=== PATIENT | female | born 1930 | race Asian ===

== ENCOUNTER 2019-10-23 18:33 | Inpatient (IN) | payer BC, OTHER ==
[~2019-10-23] VITALS: Ht 149.9 cm; Wt 49.0 kg
[~2019-10-23 18:33] MED LIST: ACETAMINOPHEN-1 EAC1 ORAL; ALLOPURINOL100 M1 ORAL; ANTIVERT25 MG ORAL; ATORVASTATIN CA20 MG PO; CEPHALEXIN500 MG PO; ECOTRIN81 MG ORAL; GLUCOPHAGE500 MG PO; IMODIUM2 MG ORAL; NEURONTIN400 MG ORAL; NORVASC5 MG PO; RANITIDINE HCL150 MG ORAL; SYSTANE 0.3-0.1 EAC1 OP; ZESTRIL10 MG ORAL; ZESTRIL20 MG PO; ZOFRAN ODT4 MG ORAL; [UNRECOGNIZED DRUG - REMARK]
[2019-10-23 18:47] VITALS: BP 141/45
--- NOTE | 2019-10-23 18:51 | Emergency Room Report ---
History of Present Illness General Chief Complaint: Generalized Weakness Source: Patient Present Illness HPI Patient is an 88-year-old female who presents to the ER complaining of generalized weakness. Patient states that she passed out earlier today. She states that since starting triage she started having some left-sided substernal chest pain. Patient states that she does not have a headache and does not know if she hit her head. She also complains of shortness of breath that started this morning. She denies any fever or chills. She states that she is so weak that she cannot get around easily and complains of decreased p.o. intake. Patient denies any rash. She denies any abdominal pain nausea or vomiting. Patient was brought in by EMS. Allergies: Coded Allergies: No Known Allergies (Verified , 01/12/11) COVID-19 Screening Contact w/high risk pt: No Recent Travel to affected area: No Experienced COVID-19 symptoms?: No COVID-19 Testing performed [employer]: No Patient History Last Menstrual Period: na Reviewed Nursing Documentation: PMH: Agreed; PSxH: Agreed Nursing Documentation-PMH Past Medical History: No History, Except For Hx Hypertension: Yes Hx Pacemaker: No Hx Asthma: No Hx COPD: No Hx Diabetes: Yes Hx Cancer: No Hx Gastrointestinal Problems: Yes Hx Dialysis: No Hx Neurological Problems: No Hx Cerebrovascular Accident: No Hx Seizures: No Review of Systems All Other Systems: negative except mentioned in HPI Physical Exam Vital Signs Date Time Temp Pulse Resp B/P (MAP) Pulse Ox O2 Delivery O2 Flow Rate FiO2 10/23/19 18:29 97.5 85 22 141/45 (77) 99 Room Air Sp02 EP Interpretation: reviewed, normal General Appearance: no apparent distress, alert, GCS 15, non-toxic Head: normocephalic, atraumatic Eyes: bilateral eye normal inspection, bilateral eye PERRL ENT: hearing grossly normal, normal pharynx, no angioedema, normal voice Neck: full range of motion, supple/symm/no masses Respiratory: chest non-tender, lungs clear, normal breath sounds, speaking full sentences Cardiovascular #1: regular rate, rhythm, no edema Gastrointestinal: normal bowel sounds, non tender, soft, non-distended, no guarding, no rebound Rectal: deferred Genitourinary: no CVA tenderness Musculoskeletal: back normal, normal range of motion, non-tender Neurologic: alert, motor strength/tone normal, oriented x3, sensory intact, responsive, speech normal Psychiatric: no suicidal/homicidal ideation Skin: no rash Lymphatic: no adenopathy Procedures Critical Care Time Critical Care Time Total critical care time: Approximately 35 minutes. Due to a high probability of clinically significant, life threatening deterioration, the patient required my highest level of preparedness to intervene emergently and I personally spent this critical care time directly and personally managing the patient. This critical care time included obtaining a history; examining the patient; pulse oximetry; ordering and review of studies; arranging urgent treatment with development of a management plan; evaluation of patient's response to treatment ; frequent reassessment; and, discussions with other providers.This critical care time was performed to assess and manage the high probability of imminent, life-threatening deterioration that could result in multi-organ failure. It was exclusive of separately billable procedures and treating other patients and teaching time. Please see MDM section and the rest of the note for further information on patient assessment and treatment. Medical Decision Making Diagnostic Impression: Primary Impression: chest pain Additional Impressions: Syncope Weakness ER Course Patient presents severely anemic from upper GI bleed. Patient started on Protonix. Patient given 80 mg IV push and 8 mg/h as a drip. 2 units of packed red blood cells have been ordered. Patient initially had complained of chest pain. She was given 162 of aspirin. Patient's lactic acid is 5.6. She has been pancultured. Patient started on cefepime. Chest x-ray demonstrates no acute cardiopulmonary pathology. Patient to be admitted for further treatment and evaluation. EKG Diagnostic Results EKG Time: 18:44 EP Interpretation: MD Richa Rate: normal Rhythm: NSR ST Segments: no acute changes ASA given to the pt in ED: Yes Rhythm Strip Diag. Results Rhythm Strip Time: 19:21 EP Interpretation: yes Rate: 73 Rhythm: NSR, no PVC's, no ectopy Chest X-Ray Diagnostic Results Chest X-Ray Diagnostic Results : Chest X-Ray Ordered: Yes # of Views/Limited/Complete: 1 View Indication: Chest Pain EP Interpretation: Yes Interpretation: no consolidation, no effusion, no pneumothorax, no acute cardiopulmonary disease Impression: No acute disease Electronically Signed by: Richa Amado MD Last Vital Signs Date Time Temp Pulse Resp B/P (MAP) Pulse Ox O2 Delivery O2 Flow Rate FiO2 10/23/19 18:29 97.5 85 22 141/45 (77) 99 Room Air Disposition: ADMITTED INPATIENT - ERASED Condition: Critical Physician Consult: Sherrill Sepsis Event Note Evaluation Current Stage of Sepsis: Severe Sepsis Possible Source: GI Tract/Intra-Abdominal Focused Exam Allergies: Coded Allergies: No Known Allergies (Verified , 01/12/11) Date Exam Occurred: October 23, 2019 Time Exam Occurred: 20:50 Laboratory Studies Laboratory Tests Test 10/23/19 19:12 10/23/19 20:20 White Blood Count 16.3 K/UL (4.8-10.8) H Red Blood Count 1.67 M/UL (4.20-5.40) L Hemoglobin 5.3 G/DL (12.0-16.0) *L Hematocrit 17.8 % (37.0-47.0) L Mean Corpuscular Volume 107 FL (80-99) H Mean Corpuscular Hemoglobin 31.9 PG (27.0-31.0) H Mean Corpuscular Hemoglobin Concent 30.0 G/DL (32.0-36.0) L Red Cell Distribution Width 15.6 % (11.6-14.8) H Platelet Count 183 K/UL (150-450) Mean Platelet Volume 6.5 FL (6.5-10.1) Neutrophils (%) (Auto) % (45.0-75.0) Lymphocytes (%) (Auto) % (20.0-45.0) Monocytes (%) (Auto) % (1.0-10.0) Eosinophils (%) (Auto) % (0.0-3.0) Basophils (%) (Auto) % (0.0-2.0) Differential Total Cells Counted 100 Neutrophils % (Manual) 87 % (45-75) H Lymphocytes % (Manual) 8 % (20-45) L Monocytes % (Manual) 5 % (1-10) Eosinophils % (Manual) 0 % (0-3) Basophils % (Manual) 0 % (0-2) Band Neutrophils 0 % (0-8) Nucleated Red Blood Cells 1 /100 WBC Platelet Estimate Adequate Platelet Morphology Normal Polychromasia 1+ Hypochromasia 3+ Anisocytosis 1+ Macrocytosis 2+ Prothrombin Time 10.4 SEC (9.30-11.50) Prothromb Time International Ratio 0.9 (0.9-1.1) Activated Partial Thromboplast Time 17 SEC (23-33) L D-Dimer 0.61 mg/L FEU (0.00-0.49) H Sodium Level 139 MMOL/L (136-145) Potassium Level 4.4 MMOL/L (3.5-5.1) Chloride Level 104 MMOL/L (98-107) Carbon Dioxide Level 21 MMOL/L (21-32) Anion Gap 14 mmol/L (5-15) Blood Urea Nitrogen 89 mg/dL (7-18) H Creatinine 2.3 MG/DL (0.55-1.30) H Estimat Glomerular Filtration Rate 20.0 mL/min (>60) Glucose Level 312 MG/DL (74-106) H Lactic Acid Level 5.90 mmol/L (0.4-2.0) H Pending Calcium Level 8.3 MG/DL (8.5-10.1) L Phosphorus Level 4.1 MG/DL (2.5-4.9) Magnesium Level 2.2 MG/DL (1.8-2.4) Total Bilirubin 0.1 MG/DL (0.2-1.0) L Aspartate Amino Transf (AST/SGOT) 19 U/L (15-37) Alanine Aminotransferase (ALT/SGPT) 22 U/L (12-78) Alkaline Phosphatase 27 U/L (46-116) L Total Creatine Kinase 42 U/L (26-308) Troponin I 0.027 ng/mL (0.000-0.056) Pro-B-Type Natriuretic Peptide 1200 pg/mL (0-125) H Total Protein 5.5 G/DL (6.4-8.2) L Albumin 2.5 G/DL (3.4-5.0) L Globulin 3.0 g/dL Albumin/Globulin Ratio 0.8 (1.0-2.7) L Vital Signs Last 24 Hour Vital Signs Date Time Temp Pulse Resp B/P (MAP) Pulse Ox O2 Delivery O2 Flow Rate FiO2 10/23/19 18:47 97.5 22 141/45 99 Room Air 10/23/19 18:47 85 22 Room Air 10/23/19 18:29 97.5 85 22 141/45 (77) 99 Room Air Respiratory Exam: Clear Cardiovascular Exam: RRR Capillary Refill: Less Than 2 Seconds Peripheral Pulse: Strong Ingris Chaudhry M.D. October 23, 2019 18:51
[2019-10-23] MEDS ORDERED: Aspirin Baby 81mg ORAL ONE (19:00)
--- NOTE | 2019-10-23 19:04 | Diagnostic Imaging Report ---
EXAM: CT Head Without Intravenous Contrast CLINICAL HISTORY: SYNCOPE TECHNIQUE: Axial computed tomography images of the head/brain without intravenous contrast. CTDI is 53 mGy and DLP is 1019 mGy-cm. One or more of the following dose reduction techniques were used: automated exposure control, adjustment of the mA and/or kV according to patient size, use of iterative reconstruction technique. COMPARISON: No relevant prior studies available. FINDINGS: Brain: Parenchymal volume loss. Nonspecific white matter hypoattenuation likely secondary to chronic microvascular ischemia. Cerebrovascular ASVD. 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 No hemorrhage. Ventricles: Unremarkable. No ventriculomegaly. Bones/joints: Unremarkable. No acute fracture. Soft tissues: Unremarkable. Sinuses: Unremarkable as visualized. No acute sinusitis. Mastoid air cells: Unremarkable as visualized. No mastoid effusion. IMPRESSION: 1. No acute intracranial abnormality. 2. Mild chronic senescent findings above. 3. 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
--- NOTE | 2019-10-23 19:12 | Diagnostic Imaging Report ---
ADDENDUM - Added by Cristian Salinas MD on 10/23/2019 7:12 PM (-07:00) Addendum: -Please note that impression 4 should read "If there is continued concern, recommend CT." -Remainder of the report is unchanged. EXAM: XR Chest, 1 View CLINICAL HISTORY: SOB TECHNIQUE: Frontal view of the chest. COMPARISON: 01/04/14 FINDINGS: Lungs: No acute cardiopulmonary disease. Chronic hyperinflation. Pleural space: Unremarkable. No pneumothorax. Heart: Unremarkable. No cardiomegaly. Mediastinum: Unremarkable. Bones/joints: Degenerative spine findings and osteopenia. Tubes, lines and devices: New left chest electronic device. Other findings: If there is continued concern, recommend repeat. IMPRESSION: 1. No acute cardiopulmonary disease. 2. New left chest electronic device. 3. Chronic hyperinflation. 4. If there is continued concern, recommend repeat.
[2019-10-23 19:33] LABS: HEMATOCRIT 17.8 % (37.0-47.0); MEAN CORPUSCULAR VOLUME 107 FL (80-99); PLATELET COUNT 183 K/UL (150-450); RED BLOOD COUNT 1.67 M/UL (4.20-5.40); RED CELL DISTRIBUTION WIDTH 15.6 % (11.6-14.8); WHITE BLOOD COUNT 16.3 K/UL (4.8-10.8)
[2019-10-23 19:38] LABS: HEMOGLOBIN 5.3 G/DL (12.0-16.0)
[2019-10-23 19:43] LABS: ANION GAP 14 mmol/L (5-15); BLOOD UREA NITROGEN 89 mg/dL (7-18); CALCIUM 8.3 MG/DL (8.5-10.1); CARBON DIOXIDE 21 MMOL/L (21-32); CHLORIDE 104 MMOL/L (98-107); CREATININE 2.3 MG/DL (0.55-1.30); POTASSIUM 4.4 MMOL/L (3.5-5.1); SODIUM 139 MMOL/L (136-145)
[2019-10-23] MEDS ORDERED: Pantoprazole Inj IVP ONE (19:45)
[2019-10-23] MEDS ORDERED: Pantoprazole 80 MG in NS 250 ML IV ONE (19:45)
[2019-10-23 19:46] LABS: INR 0.9 (0.9-1.1)
[2019-10-23 19:55] LABS: ALANINE AMINOTRANSFERASE 22 U/L (12-78); ALBUMIN 2.5 G/DL (3.4-5.0); ALBUMIN/GLOBULIN RATIO 0.8 (1.0-2.7); ALKALINE PHOSPHATASE 27 U/L (46-116); ASPARTATE AMINO TRANSFERASE 19 U/L (15-37); BILIRUBIN,TOTAL 0.1 MG/DL (0.2-1.0); CREATINE KINASE 42 U/L (26-308); PHOSPHORUS 4.1 MG/DL (2.5-4.9)
[2019-10-23] MEDS ORDERED: Cefepime HCl 2 GM in D5W 55 ML IVPB ONE (20:00)
[2019-10-23] MEDS ORDERED: Pantoprazole Inj ONE (20:10)
[2019-10-23 21:05] LABS: APPEARANCE,URINE SLIGHTLY CLOUDY; BILIRUBIN, URINE NEGATIVE (NEGATIVE); COLOR,URINE PALE YELLOW; GLUCOSE, URINE (UA) 1+ (NEGATIVE); KETONES,URINE NEGATIVE (NEGATIVE); LEUKOCYTE ESTERASE ,URINE 2+ (NEGATIVE); NITRITE,URINE NEGATIVE (NEGATIVE); PH,URINE 5 (4.5-8.0); PROTEIN,URINE NEGATIVE (NEGATIVE); UROBILINOGEN,URINE NORMAL MG/DL (0.0-1.0)
[2019-10-23] MEDS ORDERED: fentaNYL 100 mcg/2 mL IV ONE (21:15)
--- NOTE | 2019-10-23 21:58 | Diagnostic Imaging Report ---
EXAM: CT Abdomen and Pelvis Without Intravenous Contrast CLINICAL HISTORY: FALL TECHNIQUE: Axial computed tomography images of the abdomen and pelvis without intravenous contrast. CTDI is 3.4 mGy and DLP is 2:15 mGy-cm. One or more of the following dose reduction techniques were used: automated exposure control, adjustment of the mA and/or kV according to patient size, use of iterative reconstruction technique. COMPARISON: 09/21/13 CT abdomen and pelvis FINDINGS: Lung bases: Unremarkable. No mass. No consolidation. ABDOMEN: Liver: Unremarkable. Gallbladder and bile ducts: Cholelithiasis without findings to suggest acute cholecystitis. No ductal dilation. Pancreas: Unremarkable. No ductal dilation. Spleen: Unremarkable. No splenomegaly. Adrenals: Unremarkable. No mass. Kidneys and ureters: Right renal atrophy. No obstructing stones. No hydronephrosis. Stomach and bowel: Colonic diverticulosis without acute diverticulitis. Areas of possible small bowel wall thickening or nondistention could be incidental, or could represent infectious or inflammatory enteritis in the proper clinical context. Otherwise unremarkable bowel structures. PELVIS: Appendix: No findings to suggest acute appendicitis. Bladder: Unremarkable. No stones. Reproductive: Unremarkable as visualized. ABDOMEN and PELVIS: Intraperitoneal space: Unremarkable. No free air. No significant fluid collection. Bones/joints: Osteopenia and mild degenerative age related spine findings. No acute fracture. No dislocation. Soft tissues: Unremarkable. Vasculature: Atherosclerotic vascular disease. No abdominal aortic aneurysm. Lymph nodes: Unremarkable. No enlarged lymph nodes. IMPRESSION: 1. No acute traumatic injury. 2. Areas of possible small bowel wall thickening or nondistention could be incidental, or could represent infectious or inflammatory enteritis in the proper clinical context. 3. Cholelithiasis without findings to suggest acute cholecystitis. 4. Colonic diverticulosis without acute diverticulitis. 5. Right renal atrophy. EXAM: CT Chest Without Intravenous Contrast CLINICAL HISTORY: FALL TECHNIQUE: Axial computed tomography images of the chest without intravenous contrast. CTDI is 3.4 mGy and DLP is 2:15 mGy-cm. One or more of the following dose reduction techniques were used: automated exposure control, adjustment of the mA and/or kV according to patient size, use of iterative reconstruction technique. Coronal and sagittal reformatted images were created and reviewed. COMPARISON: 09/21/13 CT abdomen and pelvis FINDINGS: Lungs: Unremarkable. No mass. No consolidation. Pleural space: Unremarkable. No pneumothorax. No significant effusion. Heart: Moderate coronary artery calcifications. No significant pericardial effusion. Bones/joints: Unremarkable. No acute fracture. No dislocation. Soft tissues: Unremarkable. Vasculature: Atherosclerotic vascular disease. No thoracic aortic aneurysm. Lymph nodes: Unremarkable. No enlarged lymph nodes. Other findings: Hypoattenuating blood pool to be incidental or could indicate anemia. IMPRESSION: 1. No acute traumatic injury. 2. Hypoattenuating blood pool to be incidental or could indicate anemia. 3. Moderate coronary artery calcifications.
[2019-10-23] MEDS ORDERED: Morphine Sulfate 4mg/ml Inj (IV USE ONLY) IVP PRN (23:15)
[2019-10-23] MEDS ORDERED: Milk of Magnesia 30ml Ud ORAL PRN (23:15)
[2019-10-23] MEDS ORDERED: DiphenhydrAMINE 50mg/ml Inj IVP PRN (23:15)
[2019-10-23] MEDS ORDERED: HYDROcodone/Acetamin 10/325 tab ORAL PRN (23:15)
[2019-10-23] MEDS ORDERED: Meclizine 25mg tab ORAL PRN (23:30)
[2019-10-24] VITALS: BP 139/69
[2019-10-24 04:00] VITALS: BP 138/61
[2019-10-24] MEDS ORDERED: D5 1/2NS 1,000 ML IV SCH (04:00)
[2019-10-24] MEDS: [UNRECOGNIZED DRUG - OTHER] IVPB SCH ×2 (06:14→17:19)
[2019-10-24] MEDS: NS IVPB SCH ×2 (06:14→17:19)
[2019-10-24] MEDS: NovoLOG Insulin Flexpen SUBQ SCH ×4 (06:30→20:42)
[2019-10-24 07:05] LABS: MEAN CORPUSCULAR VOLUME 88 FL (80-99); PLATELET COUNT 131 K/UL (150-450); RED BLOOD COUNT 2.16 M/UL (4.20-5.40); WHITE BLOOD COUNT 13.4 K/UL (4.8-10.8)
[2019-10-24 07:13] LABS: HEMOGLOBIN 6.5 G/DL (12.0-16.0)
[2019-10-24 07:36] LABS: ANION GAP 14 mmol/L (5-15); BLOOD UREA NITROGEN 85 mg/dL (7-18); CALCIUM 7.7 MG/DL (8.5-10.1); CARBON DIOXIDE 19 MMOL/L (21-32); CHLORIDE 112 MMOL/L (98-107); CREATININE 1.8 MG/DL (0.55-1.30); POTASSIUM 4.7 MMOL/L (3.5-5.1); SODIUM 144 MMOL/L (136-145)
[2019-10-24 08:00] VITALS: BP 145/54
[2019-10-24] MEDS: Lisinopril 20mg tab ORAL SCH ×2 (08:15→08:34)
[2019-10-24] MEDS: Docusate 250mg cap ORAL SCH (08:15)
--- NOTE | 2019-10-24 08:33 | General Progress Note ---
Assessment/Plan Problem List: (1) GI bleed ICD Codes: K92.2 - Gastrointestinal hemorrhage, unspecified SNOMED: 57324533 (2) Syncope ICD Codes: R55 - Syncope and collapse SNOMED: 390367216 (3) chest pain (4) Weakness ICD Codes: R53.1 - Weakness SNOMED: 92638858 (5) arthritis (6) HTN (hypertension) ICD Codes: I10 - HTN (hypertension) SNOMED: 55854871 (7) GERD (gastroesophageal reflux disease) ICD Codes: K21.9 - GERD (gastroesophageal reflux disease) SNOMED: 619816634 (8) Diabetes ICD Codes: E11.9 - Diabetes SNOMED: 16085059 Assessment/Plan: blood transfusion ppi stool ob plan EGD and colonoscopy for Saturday Subjective ROS Limited/Unobtainable: Yes Allergies: Coded Allergies: No Known Allergies (Verified , 01/12/11) Objective Last 24 Hour Vital Signs Date Time Temp Pulse Resp B/P (MAP) Pulse Ox O2 Delivery O2 Flow Rate FiO2 10/24/19 08:15 145/54 10/24/19 08:00 98.8 75 20 145/54 (84) 100 10/24/19 04:00 98.1 80 16 138/61 (86) 100 10/24/19 04:00 79 10/24/19 00:00 98.1 89 20 139/69 (92) 97 10/24/19 00:00 84 10/23/19 23:30 Room Air 10/23/19 21:36 97.5 10/23/19 19:40 97.5 22 141/45 99 Room Air 10/23/19 18:47 97.5 22 141/45 99 Room Air 10/23/19 18:47 85 22 Room Air 10/23/19 18:29 97.5 85 22 141/45 (77) 99 Room Air Intake and Output 10/23/19 10/24/19 19:00 07:00 Intake Total 450 ml Output Total 850 ml Balance -400 ml Intake Oral 150 ml Blood Product 300 ml Output Urine Total 850 ml # Voids 3 Laboratory Tests 10/23/19 19:12: White Blood Count 16.3H, Red Blood Count 1.67L, Hemoglobin 5.3*L, Hematocrit 17.8L, Mean Corpuscular Volume 107H, Mean Corpuscular Hemoglobin 31.9H, Mean Corpuscular Hemoglobin Concent 30.0L, Red Cell Distribution Width 15.6H, Platelet Count 183, Mean Platelet Volume 6.5, Neutrophils (%) (Auto) , Lymphocytes (%) (Auto) , Monocytes (%) (Auto) , Eosinophils (%) (Auto) , Basophils (%) (Auto) , Differential Total Cells Counted 100, Neutrophils % ( Manual) 87H, Lymphocytes % (Manual) 8L, Monocytes % (Manual) 5, Eosinophils % ( Manual) 0, Basophils % (Manual) 0, Band Neutrophils 0, Nucleated Red Blood Cells 1, Platelet Estimate Adequate, Platelet Morphology Normal, Polychromasia 1 +, Hypochromasia 3+, Anisocytosis 1+, Macrocytosis 2+, Prothrombin Time 10.4, Prothromb Time International Ratio 0.9, Activated Partial Thromboplast Time 17L , D-Dimer 0.61H, Sodium Level 139, Potassium Level 4.4, Chloride Level 104, Carbon Dioxide Level 21, Anion Gap 14, Blood Urea Nitrogen 89H, Creatinine 2.3H , Estimat Glomerular Filtration Rate 20.0, Glucose Level 312H, Lactic Acid Level 5.90H, Calcium Level 8.3L, Phosphorus Level 4.1, Magnesium Level 2.2, Total Bilirubin 0.1L, Aspartate Amino Transf (AST/SGOT) 19, Alanine Aminotransferase (ALT/SGPT) 22, Alkaline Phosphatase 27L, Total Creatine Kinase 42, Troponin I 0.027, Pro-B-Type Natriuretic Peptide 1200H, Total Protein 5.5L, Albumin 2.5L, Globulin 3.0, Albumin/Globulin Ratio 0.8L 10/23/19 20:20: Lactic Acid Level 3.00H 10/23/19 20:50: Urine Color Pale yellow, Urine Appearance Slightly cloudy, Urine pH 5, Urine Specific [place] 1.010, Urine Protein Negative, Urine Glucose (UA) 1+H, Urine Ketones Negative, Urine Blood 5+H, Urine Nitrite Negative, Urine Bilirubin Negative, Urine Urobilinogen Normal, Urine Leukocyte Esterase 2+H, Urine RBC 2- 4H, Urine WBC 0-2, Urine Squamous Epithelial Cells Few, Urine Amorphous Sediment ModerateH, Urine Bacteria ModerateH 10/24/19 05:10: White Blood Count 13.4H, Red Blood Count 2.16L, Hemoglobin 6.5*L, Hematocrit 19.0L, Mean Corpuscular Volume 88#, Mean Corpuscular Hemoglobin 30.3, Mean Corpuscular Hemoglobin Concent 34.4, Red Cell Distribution Width 17.0H, Platelet Count 131L, Mean Platelet Volume 5.3L, Neutrophils (%) (Auto) , Lymphocytes (%) (Auto) , Monocytes (%) (Auto) , Eosinophils (%) (Auto) , Basophils (%) (Auto) , Neutrophils % (Manual) [Pending], Lymphocytes % (Manual) [Pending], Platelet Estimate [Pending], Platelet Morphology [Pending], Sodium Level 144, Potassium Level 4.7, Chloride Level 112H, Carbon Dioxide Level 19L, Anion Gap 14, Blood Urea Nitrogen 85H, Creatinine 1.8H, Estimat Glomerular Filtration Rate 26.6, Glucose Level 144#H, Calcium Level 7.7L Height (Feet): 4 Height (Inches): 11.00 Weight (Pounds): 108 General Appearance: alert EENT: normal ENT inspection Neck: supple Cardiovascular: normal rate Respiratory/Chest: decreased breath sounds Abdomen: normal bowel sounds, non tender, soft Extremities: non-tender Rios Mccartney MD October 24, 2019 08:33
--- NOTE | 2019-10-24 08:53 | History and Physical ---
Beronica Newman PHYSICAL MEDICINE TEACHER 10/24/19 0853: History of Present Illness General Date patient seen: October 24, 2019 Time patient seen: 07:30 Reason for Hospitalization: Generalized Weakness Present Illness HPI 88 years old female with past medical history of diabetes mellitus, hypertension , presented to emergency department complaining of generalized weakness. Patient apparently passed out earlier that day. Chest pain reported reported as left-sided , substernal. She also complained of shortness of breath from the morning. Patient denied headache or any focal weakness. No known fever or chills. Patient complained of decreased oral intake. She denied any abdominal pain, nausea, vomiting . She denied any hematemesis ,melena, hematochezia. Upon evaluation she was afebrile . She required supplemental oxygen. Laboratory work-up revealed leukocytosis WBC 16.3 ,hemoglobin 5.3, hematocrit 17.8, MCV 107. Platelet count 183. Stable electrolytes. BUN 89, creatinine 2.3 Lactic acid 5.9 . AST 19, ALT 22. Troponin 0.027 , proBNP 1200 . EKG revealed sinus rhythm no acute ischemic changes Albumin 2.5 UA + bacteria, no pyuria Chest x-ray revealed no acute cardiopulmonary pathology. CT of the head revealed no acute intracranial abnormality. Right basal ganglia small old lacunar infarct noted. CT scan of the chest, abdomen, pelvis revealed lung base unremarkable. No mass , no consolidation. No acute traumatic injury. Areas of possible small bowel wall thickening or non-distention could be incidental or could represent infectious or inflammatory enteritis. Cholelithiasis without findings to suggest acute cholecystitis. Colonic diverticulosis without acute diverticulitis Right renal atrophy. Moderate coronary artery calcification. In emergency department patient typed and crossed , received Protonix, 1 L of fluid , empiric antibiotic and admitted for further management. Allergies: Coded Allergies: No Known Allergies (Verified , 01/12/11) COVID-19 Screening Contact w/high risk pt: No Recent Travel to affected area: No Experienced COVID-19 symptoms?: Yes COVID-19 symptoms experienced: Shortness of Breath Medication History Scheduled Allopurinol* (Allopurinol*), 100 MG ORAL BID Aspirin (Ecotrin), 81 MG ORAL DAILY Lisinopril* (Zestril*), 10 MG ORAL DAILY Ranitidine Hcl* (Zantac*), 300 MG ORAL DAILY Scheduled PRN Meclizine Hcl* (Antivert*), 12.5 MG ORAL Q6H PRN for for dizziness Patient History History Provided By: Patient Healthcare decision maker N Resuscitation status Full code Advanced Directive on File Past Medical/Surgical History Past Medical/Surgical History: (1) HLD (hyperlipidemia) (2) Osteoporosis (3) GERD (gastroesophageal reflux disease) (4) HTN (hypertension) (5) Diabetes (6) arthritis Review of Systems Constitutional: Reports: weakness Eye: Reports: no symptoms ENT: Reports: no symptoms Respiratory: Reports: see HPI Cardiovascular: Reports: see HPI, chest pain Gastrointestinal: Reports: no symptoms Genitourinary: Reports: no symptoms Musculoskeletal: Reports: other - arthritis Skin: Reports: no symptoms Psychiatric: Reports: no symptoms Neurological: Reports: no symptoms Endocrine: Reports: other - DM Hematologic/Lymphatic: Reports: see HPI, anemia Physical Exam General Appearance: no apparent distress, alert - awake and responsive elderly female Lines, tubes and drains: peripheral HEENT: normocephalic, atraumatic, anicteric, PERRL Neck: non-tender, supple Respiratory/Chest: chest wall non-tender, lungs clear, no respiratory distress , no accessory muscle use Cardiovascular/Chest: regular rhythm Abdomen: normal bowel sounds, non tender, soft Extremities: no calf tenderness, normal capillary refill Neurologic: no motor/sensory deficits, alert, oriented x 3, responsive Musculoskeletal: atrophy - BLE Last 24 Hour Vital Signs Date Time Temp Pulse Resp B/P (MAP) Pulse Ox O2 Delivery O2 Flow Rate FiO2 10/24/19 08:15 145/54 10/24/19 08:00 98.8 75 20 145/54 (84) 100 10/24/19 04:00 98.1 80 16 138/61 (86) 100 10/24/19 04:00 79 10/24/19 00:00 98.1 89 20 139/69 (92) 97 10/24/19 00:00 84 10/23/19 23:30 Room Air 10/23/19 21:36 97.5 10/23/19 19:40 97.5 22 141/45 99 Room Air 10/23/19 18:47 97.5 22 141/45 99 Room Air 10/23/19 18:47 85 22 Room Air 10/23/19 18:29 97.5 85 22 141/45 (77) 99 Room Air Intake and Output 10/23/19 10/24/19 19:00 07:00 Intake Total 450 ml Output Total 850 ml Balance -400 ml Intake Oral 150 ml Blood Product 300 ml Output Urine Total 850 ml # Voids 3 Laboratory Tests Test 10/23/19 19:12 10/23/19 20:20 10/23/19 20:50 10/24/19 05:10 White Blood Count 16.3 K/UL (4.8-10.8) H 13.4 K/UL (4.8-10.8) H Red Blood Count 1.67 M/UL (4.20-5.40) L 2.16 M/UL (4.20-5.40) L Hemoglobin 5.3 G/DL (12.0-16.0) *L 6.5 G/DL (12.0-16.0) *L Hematocrit 17.8 % (37.0-47.0) L 19.0 % (37.0-47.0) L Mean Corpuscular Volume 107 FL (80-99) H 88 FL (80-99) # Mean Corpuscular Hemoglobin 31.9 PG (27.0-31.0) H 30.3 PG (27.0-31.0) Mean Corpuscular Hemoglobin Concent 30.0 G/DL (32.0-36.0) L 34.4 G/DL (32.0-36.0) Red Cell Distribution Width 15.6 % (11.6-14.8) H 17.0 % (11.6-14.8) H Platelet Count 183 K/UL (150-450) 131 K/UL (150-450) L Mean Platelet Volume 6.5 FL (6.5-10.1) 5.3 FL (6.5-10.1) L Neutrophils (%) (Auto) % (45.0-75.0) % (45.0-75.0) Lymphocytes (%) (Auto) % (20.0-45.0) % (20.0-45.0) Monocytes (%) (Auto) % (1.0-10.0) % (1.0-10.0) Eosinophils (%) (Auto) % (0.0-3.0) % (0.0-3.0) Basophils (%) (Auto) % (0.0-2.0) % (0.0-2.0) Differential Total Cells Counted 100 Neutrophils % (Manual) 87 % (45-75) H Pending Lymphocytes % (Manual) 8 % (20-45) L Pending Monocytes % (Manual) 5 % (1-10) Eosinophils % (Manual) 0 % (0-3) Basophils % (Manual) 0 % (0-2) Band Neutrophils 0 % (0-8) Nucleated Red Blood Cells 1 /100 WBC Platelet Estimate Adequate Pending Platelet Morphology Normal Pending Polychromasia 1+ Hypochromasia 3+ Anisocytosis 1+ Macrocytosis 2+ Prothrombin Time 10.4 SEC (9.30-11.50) Prothromb Time International Ratio 0.9 (0.9-1.1) Activated Partial Thromboplast Time 17 SEC (23-33) L D-Dimer 0.61 mg/L FEU (0.00-0.49) H Sodium Level 139 MMOL/L (136-145) 144 MMOL/L (136-145) Potassium Level 4.4 MMOL/L (3.5-5.1) 4.7 MMOL/L (3.5-5.1) Chloride Level 104 MMOL/L (98-107) 112 MMOL/L (98-107) H Carbon Dioxide Level 21 MMOL/L (21-32) 19 MMOL/L (21-32) L Anion Gap 14 mmol/L (5-15) 14 mmol/L (5-15) Blood Urea Nitrogen 89 mg/dL (7-18) H 85 mg/dL (7-18) H Creatinine 2.3 MG/DL (0.55-1.30) H 1.8 MG/DL (0.55-1.30) H Estimat Glomerular Filtration Rate 20.0 mL/min (>60) 26.6 mL/min (>60) Glucose Level 312 MG/DL (74-106) H 144 MG/DL (74-106) #H Lactic Acid Level 5.90 mmol/L (0.4-2.0) H 3.00 mmol/L (0.66-2.22) H Calcium Level 8.3 MG/DL (8.5-10.1) L 7.7 MG/DL (8.5-10.1) L Phosphorus Level 4.1 MG/DL (2.5-4.9) Magnesium Level 2.2 MG/DL (1.8-2.4) Total Bilirubin 0.1 MG/DL (0.2-1.0) L Aspartate Amino Transf (AST/SGOT) 19 U/L (15-37) Alanine Aminotransferase (ALT/SGPT) 22 U/L (12-78) Alkaline Phosphatase 27 U/L (46-116) L Total Creatine Kinase 42 U/L (26-308) Troponin I 0.027 ng/mL (0.000-0.056) Pro-B-Type Natriuretic Peptide 1200 pg/mL (0-125) H Total Protein 5.5 G/DL (6.4-8.2) L Albumin 2.5 G/DL (3.4-5.0) L Globulin 3.0 g/dL Albumin/Globulin Ratio 0.8 (1.0-2.7) L Urine Color Pale yellow Urine Appearance Slightly cloudy Urine pH 5 (4.5-8.0) Urine Specific [place] 1.010 (1.005-1.035) Urine Protein Negative (NEGATIVE) Urine Glucose (UA) 1+ (NEGATIVE) H Urine Ketones Negative (NEGATIVE) Urine Blood 5+ (NEGATIVE) H Urine Nitrite Negative (NEGATIVE) Urine Bilirubin Negative (NEGATIVE) Urine Urobilinogen Normal MG/DL (0.0-1.0) Urine Leukocyte Esterase 2+ (NEGATIVE) H Urine RBC 2-4 /HPF (0 - 2) H Urine WBC 0-2 /HPF (0 - 2) Urine Squamous Epithelial Cells Few /LPF (NONE/OCC) Urine Amorphous Sediment Moderate /LPF (NONE) H Urine Bacteria Moderate /HPF (NONE) H Microbiology Date/Time Source Procedure Growth Status 10/23/19 20:50 Straight Cath Urine Culture - Preliminary NO GROWTH Resulted Height (Feet): 4 Height (Inches): 11.00 Weight (Pounds): 108 Medications Current Medications Medications (Trade) Dose Ordered Sig/Kecia Route PRN Reason Start Time Stop Time Status Last Admin Dose Admin Acetaminophen (Tylenol) 650 mg Q4H PRN ORAL Mild Pain (Pain Scale 1-3) 10/23/19 23:15 11/22/19 23:14 Acetaminophen/ Hydrocodone Bitart ([place] 10/325) 1 tab Q4H PRN ORAL Moderate Pain (Pain Scale 4-6) 10/23/19 23:15 10/30/19 23:14 Allopurinol (Zyloprim) 100 mg QOD ORAL 10/24/19 09:00 11/23/19 08:59 10/24/19 08:15 Dextrose (Dextrose 50%) 25 ml Q30M PRN IV Hypoglycemia 10/24/19 00:15 01/22/20 00:14 Dextrose (Dextrose 50%) 50 ml Q30M PRN IV Hypoglycemia 10/24/19 00:15 01/22/20 00:14 Dextrose/Sodium Chloride 1,000 ml @ 100 mls/hr Q10H IV 10/24/19 04:00 11/23/19 03:59 10/24/19 04:05 Diphenhydramine HCl (Benadryl) 25 mg Q6H PRN IVP Itching 10/23/19 23:15 11/22/19 23:14 Docusate Sodium (Colace) 250 mg DAILY ORAL 10/24/19 09:00 11/23/19 08:59 10/24/19 08:15 Insulin Aspart (NovoLOG) BEFORE MEALS AND HS SUBQ 10/24/19 06:30 01/22/20 06:29 Lisinopril (PriniviL) 10 mg DAILY ORAL 10/24/19 09:00 11/23/19 08:59 10/24/19 08:15 Magnesium Hydroxide (Mom) 30 ml DAILYPRN PRN ORAL Constipation 10/23/19 23:15 11/22/19 23:14 Meclizine HCl (Antivert) 12.5 mg Q6H PRN ORAL for dizziness 10/23/19 23:30 11/22/19 23:29 Morphine Sulfate (Morphine Sulfate) 1 mg Q4H PRN IVP Severe Pain (Pain Scale 7-10) 10/23/19 23:15 10/30/19 23:14 Pantoprazole (Protonix) 40 mg DAILY ORAL 10/24/19 09:00 11/23/19 08:59 UNV Piperacillin Sod/ Tazobactam Sod 3.375 gm/Sodium Chloride 110 ml @ 27.5 mls/hr Q12H IVPB 10/24/19 06:00 10/31/19 05:59 10/24/19 06:14 Assessment/Plan Assessment/Plan: ASSESSMENT Anemia of acute blood loss requiring blood transfusion Rule out GI bleeding Chest pain with shortness of breath, possibly due to severe anemia Syncope , likely due to severe anemia Leukocytosis Suspected COVID-19 Acute renal failure probably on CKD Hypertension Diabetes mellitus with hyperglycemia 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 Protonix gtt transfuse with 2 units PRBC monitor H&H with goal to keep Hgb above 7 anemia work-up , stool OB , CEA CA 19-9 GI consult GI procedures planned for Saturday CL diet if OK with GI heme eval O2 prn titrate to keep sat above 90% IVF monitor renal parameters, lytes, avoid nephrotoxic nephro consult prob ARF on CKD given findings of R renal atrophy on imaging empiric abx/Zosyn, trend WBC, possibly reactive isolation fup with SARS CoV2 by PCR BS management with sliding scale of insulin IV fluids with dextrose while n.p.o. BP management with RAISA inhibitor troponin NGT, tele NGT, no further complaints of CP or SOB, hold off on any further cardiac eval, but keep in tele dietary eval case discussed and evaluated by supervising physician Shaji Mccartney MD 10/25/19 1600: History of Present Illness General Reason for Hospitalization: Generalized Weakness Present Illness Allergies: Coded Allergies: No Known Allergies (Verified , 01/12/11) Medication History Scheduled Allopurinol* (Allopurinol*), 100 MG ORAL BID Aspirin (Ecotrin), 81 MG ORAL DAILY Lisinopril* (Zestril*), 10 MG ORAL DAILY Ranitidine Hcl* (Zantac*), 300 MG ORAL DAILY Scheduled PRN Meclizine Hcl* (Antivert*), 12.5 MG ORAL Q6H PRN for for dizziness Assessment/Plan Assessment/Plan: Patient seen and examined with PHYSICAL MEDICINE TEACHER. Agree with above A&P as it reflects our joint deliberations. GIB, LEEANNE, possible sepsis PPI gtt, PRBC, GI and renal eval Beronica Newman NP October 24, 2019 08:53 Shaji Mccartney MD October 25, 2019 16:00
[2019-10-24] MEDS ORDERED: Allopurinol 100mg Tab ORAL SCH (09:00)
[2019-10-24 12:00] VITALS: BP 138/51
[2019-10-24 12:14] LABS: CHOLESTEROL 156 MG/DL (< 200); FERRITIN 46 NG/ML (8-388); HDL CHOLESTEROL 23 MG/DL (40-60); TRIGLYCERIDES 573 MG/DL (30-150)
--- NOTE | 2019-10-24 13:04 | Consultation ---
Consult Note Consult Note I am asked to evaluate the patient at the request of Dr. Mccartney for renal failure. 88-year-old pleasant lady referred to emergency room complaining of generalized weakness ,she gave a history of a syncopal earlier and also experienced substernal chest pain over the left side. She also gave a history of being short of breath. No fever no chills. Allergies none. COVID-19 screening was negative in the emergency room. Past history: Hypertension, diabetes mellitus ,gastrointestinal problem , history of CVA, osteoporosis, hyperlipemia, arthritis, Medication prior to admission: Allopurinol, aspirin, lisinopril, Zantac, as needed Antivert, After evaluation in the emergency room the patient found out to be severely anemic with stool guaiac positive. Patient interviewed. Patient examined. Discussed with RN. Patient is afebrile pulse rate is 76 respiratory rate is 18 blood pressure 141/ 45 not in any distress Head is normocephalic Neck is supple lungs no wheeze Heart regular Abdomen soft . Assessment/Plan This 88-year-old female is admitted with severe anemia as a result of acute blood loss through the GI tract. Renal failure mainly appears to be prerenal as a result of GI bleed. May have underlying chronic kidney disease due to history of hypertension and diabetes mellitus. And also provide side renal atrophy on imaging Chest pain, shortness of breath, syncope, all most likely secondary to severe anemia. 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 Hypoalbuminemia Plan: N.p.o. except medication Per GI advice Hold RAISA inhibitors, start Norvasc for blood pressure and hydralazine as needed for blood pressure over 160 systolic Transfuse as needed. Check iron panel B12 and folate level and ferritin level Slow hydration Monitor renal parameters Monitor hemoglobin and hematocrit Monitor blood sugar Urine studies Discussed with RN Per orders I spent an additional 36 minutes on review of medical records including prior hospital records,consult notes, progress notes, procedures ,imaging labs, hemodynamics, and other clinical documentation. Over 35 min Theodore Melchor MD October 24, 2019 13:04
[2019-10-24] MEDS ORDERED: HydrALAZINE 25mg tab ORAL PRN (13:15)
[2019-10-24 13:58] LABS: % IRON SATURATION 50 % (15-50); IRON 112 ug/dL (50-175); TOTAL IRON BINDING CAPACITY 224 ug/dL (250-450)
[2019-10-24] MEDS: Pantoprazole Inj IVP SCH ×2 (14:07→20:32)
[2019-10-24] MEDS: D5 1/2NS 1,000 ML IV SCH (14:08)
[2019-10-24 16:00] VITALS: BP 116/41
[2019-10-24 16:22] LABS: BASOPHILS % (AUTO) 0.8 % (0.0-2.0); EOSINOPHILS % (AUTO) 0.6 % (0.0-3.0); HEMATOCRIT 26.2 % (37.0-47.0); HEMOGLOBIN 8.2 G/DL (12.0-16.0); MEAN CORPUSCULAR VOLUME 95 FL (80-99); MONOCYTES % (AUTO) 8.5 % (1.0-10.0); NEUTROPHILS % (AUTO) 79.1 % (45.0-75.0); PLATELET COUNT 124 K/UL (150-450); RED BLOOD COUNT 2.76 M/UL (4.20-5.40); RED CELL DISTRIBUTION WIDTH 17.2 % (11.6-14.8); WHITE BLOOD COUNT 11.6 K/UL (4.8-10.8)
[2019-10-24] MEDS: Sucralfate 1gm tab ORAL SCH ×2 (17:17→20:32)
[2019-10-24] MEDS: Nateglinide 60mg tab ORAL SCH (17:17)
[2019-10-24 20:00] VITALS: BP 149/48
[2019-10-25] VITALS: BP 146/51
[2019-10-25] MEDS: D5 1/2NS 1,000 ML IV SCH ×2 (03:29→16:15)
[2019-10-25 04:00] VITALS: BP 145/47
[2019-10-25 05:50] LABS: BASOPHILS % (AUTO) 0.8 % (0.0-2.0); HEMATOCRIT 24.8 % (37.0-47.0); HEMOGLOBIN 8.7 G/DL (12.0-16.0); LYMPHOCYTES % (AUTO) 11.4 % (20.0-45.0); MEAN CORPUSCULAR VOLUME 88 FL (80-99); NEUTROPHILS % (AUTO) 80.8 % (45.0-75.0); PLATELET COUNT 133 K/UL (150-450); RED BLOOD COUNT 2.81 M/UL (4.20-5.40); RED CELL DISTRIBUTION WIDTH 16.4 % (11.6-14.8); WHITE BLOOD COUNT 9.7 K/UL (4.8-10.8)
[2019-10-25] MEDS: NS IVPB SCH ×2 (06:17→17:10)
[2019-10-25] MEDS: [UNRECOGNIZED DRUG - OTHER] IVPB SCH ×2 (06:17→17:10)
[2019-10-25] MEDS: Nateglinide 60mg tab ORAL SCH ×3 (06:17→17:09)
[2019-10-25] MEDS: NovoLOG Insulin Flexpen SUBQ SCH ×4 (06:17→21:00)
--- NOTE | 2019-10-25 06:20 | General Progress Note ---
Assessment/Plan Problem List: (1) GI bleed ICD Codes: K92.2 - Gastrointestinal hemorrhage, unspecified SNOMED: 69371477 (2) Syncope ICD Codes: R55 - Syncope and collapse SNOMED: 840777673 (3) chest pain (4) Weakness ICD Codes: R53.1 - Weakness SNOMED: 08531412 (5) arthritis (6) HTN (hypertension) ICD Codes: I10 - HTN (hypertension) SNOMED: 60394019 (7) GERD (gastroesophageal reflux disease) ICD Codes: K21.9 - GERD (gastroesophageal reflux disease) SNOMED: 791156095 (8) Diabetes ICD Codes: E11.9 - Diabetes SNOMED: 16237083 Assessment/Plan: blood transfusion ppi stool ob plan EGD and colonoscopy for Saturday Subjective ROS Limited/Unobtainable: Yes Allergies: Coded Allergies: No Known Allergies (Verified , 01/12/11) Objective Last 24 Hour Vital Signs Date Time Temp Pulse Resp B/P (MAP) Pulse Ox O2 Delivery O2 Flow Rate FiO2 10/25/19 04:00 97.9 65 16 145/47 (79) 98 10/25/19 04:00 64 10/25/19 00:00 72 10/25/19 00:00 98.1 71 16 146/51 (82) 99 10/24/19 21:00 Room Air 10/24/19 20:00 78 10/24/19 20:00 97.9 59 16 149/48 (81) 100 10/24/19 16:00 98.1 57 18 116/41 (66) 97 10/24/19 16:00 43 10/24/19 12:00 59 10/24/19 12:00 99.3 75 18 138/51 (80) 97 10/24/19 09:00 Room Air 10/24/19 08:00 98.8 75 20 145/54 (84) 100 10/24/19 08:00 76 Intake and Output 10/24/19 10/25/19 19:00 07:00 Intake Total 195 ml 375 ml Balance 195 ml 375 ml Intake Oral 120 ml IV Total 75 ml 375 ml # Voids 1 Laboratory Tests 10/24/19 12:00: Iron Level 112, Total Iron Binding Capacity 224L, Percent Iron Saturation 50, Unsaturated Iron Binding 112, Ferritin 41, Vitamin B12 Level 440, Folate 63.7H 10/24/19 16:00: White Blood Count 11.6H, Red Blood Count 2.76L, Hemoglobin 8.2L, Hematocrit 26.2 #L, Mean Corpuscular Volume 95, Mean Corpuscular Hemoglobin 29.8, Mean Corpuscular Hemoglobin Concent 31.3L, Red Cell Distribution Width 17.2H, Platelet Count 124L, Mean Platelet Volume 7.3, Neutrophils (%) (Auto) 79.1H, Lymphocytes (%) (Auto) 11.0L, Monocytes (%) (Auto) 8.5, Eosinophils (%) (Auto) 0.6, Basophils (%) (Auto) 0.8 10/24/19 20:50: Urine Random Sodium < 20L 10/25/19 05:30: White Blood Count 9.7, Red Blood Count 2.81L, Hemoglobin 8.7L, Hematocrit 24.8L , Mean Corpuscular Volume 88, Mean Corpuscular Hemoglobin 31.1H, Mean Corpuscular Hemoglobin Concent 35.2, Red Cell Distribution Width 16.4H, Platelet Count 133L, Mean Platelet Volume 5.8L, Neutrophils (%) (Auto) 80.8H, Lymphocytes (%) (Auto) 11.4L, Monocytes (%) (Auto) 5.0, Eosinophils (%) (Auto) 2.0, Basophils (%) (Auto) 0.8, Sodium Level [Pending], Potassium Level [Pending] , Chloride Level [Pending], Carbon Dioxide Level [Pending], Blood Urea Nitrogen [Pending], Creatinine [Pending], Estimat Glomerular Filtration Rate [Pending], Glucose Level [Pending], Uric Acid [Pending], Calcium Level [Pending], Phosphorus Level [Pending], Magnesium Level [Pending], Total Bilirubin [Pending] , Aspartate Amino Transf (AST/SGOT) [Pending], Alanine Aminotransferase (ALT/ SGPT) [Pending], Alkaline Phosphatase [Pending], Total Protein [Pending], Albumin [Pending], Globulin [Pending], Carcinoembryonic Antigen [Pending], CA 19 -9 Antigen [Pending], Thyroid Stimulating Hormone (TSH) [Pending] Height (Feet): 4 Height (Inches): 11.00 Weight (Pounds): 108 General Appearance: no apparent distress EENT: normal ENT inspection Neck: supple Cardiovascular: normal rate Respiratory/Chest: decreased breath sounds Abdomen: normal bowel sounds, non tender, soft Extremities: non-tender Rios Mccartney MD October 25, 2019 06:19
--- NOTE | 2019-10-25 07:04 | Cardiac Electrophysiology PN ---
Subjective Subjective Cardiology consult dictated [id number] Objective Last 24 Hour Vital Signs Date Time Temp Pulse Resp B/P (MAP) Pulse Ox O2 Delivery O2 Flow Rate FiO2 10/25/19 04:00 97.9 65 16 145/47 (79) 98 10/25/19 04:00 64 10/25/19 00:00 72 10/25/19 00:00 98.1 71 16 146/51 (82) 99 10/24/19 21:00 Room Air 10/24/19 20:00 78 10/24/19 20:00 97.9 59 16 149/48 (81) 100 10/24/19 16:00 98.1 57 18 116/41 (66) 97 10/24/19 16:00 43 10/24/19 12:00 59 10/24/19 12:00 99.3 75 18 138/51 (80) 97 10/24/19 09:00 Room Air 10/24/19 08:00 98.8 75 20 145/54 (84) 100 10/24/19 08:00 76 Intake and Output 10/24/19 10/25/19 19:00 07:00 Intake Total 195 ml 375 ml Balance 195 ml 375 ml Intake Oral 120 ml IV Total 75 ml 375 ml # Voids 1 4 Laboratory Tests Test 10/24/19 12:00 10/24/19 16:00 10/24/19 20:50 10/25/19 05:30 Iron Level 112 ug/dL (50-175) Total Iron Binding Capacity 224 ug/dL (250-450) L Percent Iron Saturation 50 % (15-50) Unsaturated Iron Binding 112 ug/dL (112-346) Ferritin 41 NG/ML (8-388) Vitamin B12 Level 440 PG/ML (193-986) Folate 63.7 NG/ML (8.6-58.9) H White Blood Count 11.6 K/UL (4.8-10.8) H 9.7 K/UL (4.8-10.8) Red Blood Count 2.76 M/UL (4.20-5.40) L 2.81 M/UL (4.20-5.40) L Hemoglobin 8.2 G/DL (12.0-16.0) L 8.7 G/DL (12.0-16.0) L Hematocrit 26.2 % (37.0-47.0) #L 24.8 % (37.0-47.0) L Mean Corpuscular Volume 95 FL (80-99) 88 FL (80-99) Mean Corpuscular Hemoglobin 29.8 PG (27.0-31.0) 31.1 PG (27.0-31.0) H Mean Corpuscular Hemoglobin Concent 31.3 G/DL (32.0-36.0) L 35.2 G/DL (32.0-36.0) Red Cell Distribution Width 17.2 % (11.6-14.8) H 16.4 % (11.6-14.8) H Platelet Count 124 K/UL (150-450) L 133 K/UL (150-450) L Mean Platelet Volume 7.3 FL (6.5-10.1) 5.8 FL (6.5-10.1) L Neutrophils (%) (Auto) 79.1 % (45.0-75.0) H 80.8 % (45.0-75.0) H Lymphocytes (%) (Auto) 11.0 % (20.0-45.0) L 11.4 % (20.0-45.0) L Monocytes (%) (Auto) 8.5 % (1.0-10.0) 5.0 % (1.0-10.0) Eosinophils (%) (Auto) 0.6 % (0.0-3.0) 2.0 % (0.0-3.0) Basophils (%) (Auto) 0.8 % (0.0-2.0) 0.8 % (0.0-2.0) Urine Random Sodium < 20 mmol/L (20-110) L Sodium Level Pending Potassium Level Pending Chloride Level Pending Carbon Dioxide Level Pending Blood Urea Nitrogen Pending Creatinine Pending Estimat Glomerular Filtration Rate Pending Glucose Level Pending Uric Acid Pending Calcium Level Pending Phosphorus Level Pending Magnesium Level Pending Total Bilirubin Pending Aspartate Amino Transf (AST/SGOT) Pending Alanine Aminotransferase (ALT/SGPT) Pending Alkaline Phosphatase Pending Troponin I Pending Total Protein Pending Albumin Pending Globulin Pending Carcinoembryonic Antigen Pending CA 19-9 Antigen Pending Thyroid Stimulating Hormone (TSH) Pending Microbiology Date/Time Source Procedure Growth Status 10/23/19 19:20 Blood Blood Culture - Preliminary NO GROWTH AFTER 24 HOURS Resulted 10/23/19 19:05 Blood Blood Culture - Preliminary NO GROWTH AFTER 24 HOURS Resulted 10/23/19 20:50 Straight Cath Urine Culture - Preliminary NO GROWTH Resulted Hao Delacruz MD October 25, 2019 07:04
[2019-10-25 07:06] LABS: ALANINE AMINOTRANSFERASE 25 U/L (12-78); ALBUMIN 2.5 G/DL (3.4-5.0); ALBUMIN/GLOBULIN RATIO 0.9 (1.0-2.7); ALKALINE PHOSPHATASE 19 U/L (46-116); ANION GAP 12 mmol/L (5-15); ASPARTATE AMINO TRANSFERASE 30 U/L (15-37); BILIRUBIN,TOTAL 0.4 MG/DL (0.2-1.0); BLOOD UREA NITROGEN 51 mg/dL (7-18); CALCIUM 7.9 MG/DL (8.5-10.1); CARBON DIOXIDE 21 MMOL/L (21-32); CHLORIDE 114 MMOL/L (98-107); CREATININE 1.8 MG/DL (0.55-1.30); PHOSPHORUS 2.5 MG/DL (2.5-4.9); POTASSIUM 4.1 MMOL/L (3.5-5.1); SODIUM 146 MMOL/L (136-145)
--- NOTE | 2019-10-25 07:39 | Pulmonology Progress Note ---
Beronica Newman SOFTWARE PACKAGING ENGINEER 10/25/19 0739: Subjective ROS Limited/Unobtainable: Yes Allergies: Coded Allergies: No Known Allergies (Verified , 01/12/11) Subjective leuk resolved, HH up after blood transfusion creat down to 1.8 Objective Last 24 Hour Vital Signs Date Time Temp Pulse Resp B/P (MAP) Pulse Ox O2 Delivery O2 Flow Rate FiO2 10/25/19 04:00 97.9 65 16 145/47 (79) 98 10/25/19 04:00 64 10/25/19 00:00 72 10/25/19 00:00 98.1 71 16 146/51 (82) 99 10/24/19 21:00 Room Air 10/24/19 20:00 78 10/24/19 20:00 97.9 59 16 149/48 (81) 100 10/24/19 16:00 98.1 57 18 116/41 (66) 97 10/24/19 16:00 43 10/24/19 12:00 59 10/24/19 12:00 99.3 75 18 138/51 (80) 97 10/24/19 09:00 Room Air 10/24/19 08:00 98.8 75 20 145/54 (84) 100 10/24/19 08:00 76 Intake and Output 10/24/19 10/25/19 19:00 07:00 Intake Total 195 ml 375 ml Balance 195 ml 375 ml Intake Oral 120 ml IV Total 75 ml 375 ml # Voids 1 4 Objective General Appearance: no apparent distress, alert - awake and responsive elderly female Lines, tubes and drains: peripheral HEENT: normocephalic, atraumatic, anicteric, PERRL Neck: non-tender, supple Respiratory/Chest: chest wall non-tender, lungs clear, no respiratory distress , no accessory muscle use Cardiovascular/Chest: regular rhythm Abdomen: normal bowel sounds, non tender, soft Extremities: no calf tenderness, normal capillary refill Neurologic: no motor/sensory deficits, alert, oriented x 3, responsive Musculoskeletal: atrophy - BLE Microbiology Date/Time Source Procedure Growth Status 10/23/19 19:20 Blood Blood Culture - Preliminary NO GROWTH AFTER 24 HOURS Resulted 10/23/19 19:05 Blood Blood Culture - Preliminary NO GROWTH AFTER 24 HOURS Resulted 10/23/19 20:50 Straight Cath Urine Culture - Preliminary NO GROWTH Resulted Laboratory Tests 10/24/19 12:00: Iron Level 112, Total Iron Binding Capacity 224L, Percent Iron Saturation 50, Unsaturated Iron Binding 112, Ferritin 41, Vitamin B12 Level 440, Folate 63.7H 10/24/19 16:00: White Blood Count 11.6H, Red Blood Count 2.76L, Hemoglobin 8.2L, Hematocrit 26.2 #L, Mean Corpuscular Volume 95, Mean Corpuscular Hemoglobin 29.8, Mean Corpuscular Hemoglobin Concent 31.3L, Red Cell Distribution Width 17.2H, Platelet Count 124L, Mean Platelet Volume 7.3, Neutrophils (%) (Auto) 79.1H, Lymphocytes (%) (Auto) 11.0L, Monocytes (%) (Auto) 8.5, Eosinophils (%) (Auto) 0.6, Basophils (%) (Auto) 0.8 10/24/19 20:50: Urine Random Sodium < 20L 10/25/19 05:30: White Blood Count 9.7, Red Blood Count 2.81L, Hemoglobin 8.7L, Hematocrit 24.8L , Mean Corpuscular Volume 88, Mean Corpuscular Hemoglobin 31.1H, Mean Corpuscular Hemoglobin Concent 35.2, Red Cell Distribution Width 16.4H, Platelet Count 133L, Mean Platelet Volume 5.8L, Neutrophils (%) (Auto) 80.8H, Lymphocytes (%) (Auto) 11.4L, Monocytes (%) (Auto) 5.0, Eosinophils (%) (Auto) 2.0, Basophils (%) (Auto) 0.8, Sodium Level 146H, Potassium Level 4.1, Chloride Level 114H, Carbon Dioxide Level 21, Anion Gap 12, Blood Urea Nitrogen 51H, Creatinine 1.8H, Estimat Glomerular Filtration Rate 26.6, Glucose Level 110H, Uric Acid 4.5, Calcium Level 7.9L, Phosphorus Level 2.5, Magnesium Level 2.3, Total Bilirubin 0.4, Aspartate Amino Transf (AST/SGOT) 30, Alanine Aminotransferase (ALT/SGPT) 25, Alkaline Phosphatase 19L, Troponin I 0.040, Total Protein 5.2L, Albumin 2.5L, Globulin 2.7, Albumin/Globulin Ratio 0.9L, Carcinoembryonic Antigen [Pending], CA 19-9 Antigen [Pending], Thyroid Stimulating Hormone (TSH) 2.143 Current Medications Medications (Trade) Dose Ordered Sig/Kecia Route PRN Reason Start Time Stop Time Status Last Admin Dose Admin Acetaminophen (Tylenol) 650 mg Q4H PRN ORAL Mild Pain (Pain Scale 1-3) 10/23/19 23:15 11/22/19 23:14 Amlodipine Besylate (Norvasc) 5 mg DAILY ORAL 10/25/19 09:00 11/24/19 08:59 Dextrose (Dextrose 50%) 25 ml Q30M PRN IV Hypoglycemia 10/24/19 00:15 01/22/20 00:14 Dextrose (Dextrose 50%) 50 ml Q30M PRN IV Hypoglycemia 10/24/19 00:15 01/22/20 00:14 Dextrose/Sodium Chloride 1,000 ml @ 75 mls/hr [id number] IV 10/24/19 13:15 11/23/19 13:14 10/25/19 03:29 Diphenhydramine HCl (Benadryl) 25 mg Q6H PRN IVP Itching 10/23/19 23:15 11/22/19 23:14 Docusate Sodium (Colace) 250 mg DAILY ORAL 10/24/19 09:00 11/23/19 08:59 10/24/19 08:15 Hydralazine HCl (Apresoline) 25 mg Q4HR PRN ORAL Blood pressure over 160 systol 10/24/19 13:15 01/22/20 13:14 Insulin Aspart (NovoLOG) BEFORE MEALS AND HS SUBQ 10/24/19 06:30 01/22/20 06:29 10/24/19 12:48 Magnesium Hydroxide (Mom) 30 ml DAILYPRN PRN ORAL Constipation 10/23/19 23:15 11/22/19 23:14 Meclizine HCl (Antivert) 12.5 mg Q6H PRN ORAL for dizziness 10/23/19 23:30 11/22/19 23:29 Morphine Sulfate (Morphine Sulfate) 1 mg Q4H PRN IVP Severe Pain (Pain Scale 7-10) 10/23/19 23:15 10/30/19 23:14 Nateglinide (Starlix) 60 mg TIAC ORAL 10/24/19 16:30 11/23/19 16:29 10/25/19 06:17 Pantoprazole (Protonix) 40 mg EVERY 12 HOURS IVP 10/24/19 13:30 11/23/19 13:29 10/24/19 20:32 Piperacillin Sod/ Tazobactam Sod 3.375 gm/Sodium Chloride 110 ml @ 27.5 mls/hr Q12H IVPB 10/24/19 06:00 10/31/19 05:59 10/25/19 06:17 Polyethylene Glycol/ Electrolytes (Nulytely) 4,000 ml ONCE ORAL 10/25/19 16:00 10/25/19 22:00 Sucralfate (Carafate) 1 gm FOUR TIMES A DAY ORAL 10/24/19 18:00 01/22/20 17:59 10/24/19 20:32 Assessment/Plan Assessment/Plan ASSESSMENT Anemia of acute blood loss requiring blood transfusion Rule out GI bleeding Chest pain with shortness of breath, possibly due to severe anemia Syncope , likely due to severe anemia Leukocytosis Suspected COVID-19 Acute renal failure probably on CKD Hypertension Diabetes mellitus with hyperglycemia 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 Cholelithiasis without evidence of cholecystitis Diverticular disease without evidence of acute diverticulitis Protein calorie malnutrition PLAN OF CARE telemetry CL diet Protonix gtt s/p 2 u PRBC HH up 8.24.8 monitor H&H with goal to keep Hgb above 7 anemia work-up , stool OB , CEA CA 19-9 GI consult appreciated GI procedures planned for Saturday CL diet for now heme eval O2 prn titrate to keep sat above 90% IVF monitor renal parameters, lytes, avoid nephrotoxic nephro consult appreciated prob ARF on CKD given findings of R renal atrophy on imaging creat down to 1.8 empiric abx/Zosyn, trend WBC, possibly reactive, leuk already resolved isolation fup with SARS CoV2 by PCR BCX NGTD UCX NGT BS management with Starlix and sliding scale of insulin IV fluids with dextrose while n.p.o. BP management with RAISA inhibitor troponin NGT, tele NGT, no further complaints of CP or SOB, cardio eval appreciated dietary eval case discussed and evaluated by supervising physician Shaji Mccartney MD 10/25/19 1602: Subjective Allergies: Coded Allergies: No Known Allergies (Verified , 01/12/11) Assessment/Plan Assessment/Plan Patient seen and examined with SOFTWARE PACKAGING ENGINEER, agree with above A&P as it reflects our joint deliberations. HH better after PRBC, Cr better, plan for endoscopy in am, continue BSAbx for now but will likely D/C in am Beronica Newman NP October 25, 2019 07:39 Shaji Mccartney MD October 25, 2019 16:02
[2019-10-25 08:00] VITALS: BP 148/59
[2019-10-25] MEDS: Sucralfate 1gm tab ORAL SCH ×4 (08:43→21:02)
[2019-10-25] MEDS: Docusate 250mg cap ORAL SCH (08:43)
[2019-10-25] MEDS: Pantoprazole Inj IVP SCH ×2 (08:43→21:02)
--- NOTE | 2019-10-25 10:11 | Nephrology Progress Note ---
Assessment/Plan Problem List: (1) Renal failure (ARF), acute on chronic (2) HTN (hypertension) (3) Diabetes (4) GI bleed (5) Anemia due to blood loss Assessment This 88-year-old female is admitted with severe anemia as a result of acute blood loss through the GI tract. Renal failure mainly appears to be prerenal as a result of GI bleed. May have underlying chronic kidney disease due to history of hypertension and diabetes mellitus. And also right side renal atrophy on imaging Chest pain, shortness of breath, syncope, all most likely secondary to severe anemia. 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 Hypoalbuminemia . Plan N.p.o. except medication Per GI advice Hold RAISA inhibitors, while monitoring renal parameters hydralazine as needed for blood pressure over 160 systolic My order of Norvasc was discontinued by Dr. Dumont Transfuse as needed. Check iron panel B12 and folate level and ferritin level Slow hydration Monitor renal parameters Monitor hemoglobin and hematocrit Monitor blood sugar Urine studies Discussed with RN Per orders Subjective ROS Limited/Unobtainable: No Constitutional: Reports: malaise Objective Objective Last 24 Hour Vital Signs Date Time Temp Pulse Resp B/P (MAP) Pulse Ox O2 Delivery O2 Flow Rate FiO2 10/25/19 09:00 Room Air 10/25/19 08:43 64 148/59 10/25/19 08:00 98.2 64 18 148/59 (88) 97 10/25/19 07:52 60 10/25/19 04:00 97.9 65 16 145/47 (79) 98 10/25/19 04:00 64 10/25/19 00:00 72 10/25/19 00:00 98.1 71 16 146/51 (82) 99 10/24/19 21:00 Room Air 10/24/19 20:00 78 10/24/19 20:00 97.9 59 16 149/48 (81) 100 10/24/19 16:00 98.1 57 18 116/41 (66) 97 10/24/19 16:00 43 10/24/19 12:00 59 10/24/19 12:00 99.3 75 18 138/51 (80) 97 Intake and Output 10/24/19 10/25/19 19:00 07:00 Intake Total 195 ml 375 ml Balance 195 ml 375 ml Intake Oral 120 ml IV Total 75 ml 375 ml # Voids 1 4 Laboratory Tests 10/24/19 12:00: Iron Level 112, Total Iron Binding Capacity 224L, Percent Iron Saturation 50, Unsaturated Iron Binding 112, Ferritin 41, Vitamin B12 Level 440, Folate 63.7H 10/24/19 16:00: White Blood Count 11.6H, Red Blood Count 2.76L, Hemoglobin 8.2L, Hematocrit 26.2 #L, Mean Corpuscular Volume 95, Mean Corpuscular Hemoglobin 29.8, Mean Corpuscular Hemoglobin Concent 31.3L, Red Cell Distribution Width 17.2H, Platelet Count 124L, Mean Platelet Volume 7.3, Neutrophils (%) (Auto) 79.1H, Lymphocytes (%) (Auto) 11.0L, Monocytes (%) (Auto) 8.5, Eosinophils (%) (Auto) 0.6, Basophils (%) (Auto) 0.8 10/24/19 20:50: Urine Random Sodium < 20L 10/25/19 05:30: White Blood Count 9.7, Red Blood Count 2.81L, Hemoglobin 8.7L, Hematocrit 24.8L , Mean Corpuscular Volume 88, Mean Corpuscular Hemoglobin 31.1H, Mean Corpuscular Hemoglobin Concent 35.2, Red Cell Distribution Width 16.4H, Platelet Count 133L, Mean Platelet Volume 5.8L, Neutrophils (%) (Auto) 80.8H, Lymphocytes (%) (Auto) 11.4L, Monocytes (%) (Auto) 5.0, Eosinophils (%) (Auto) 2.0, Basophils (%) (Auto) 0.8, Sodium Level 146H, Potassium Level 4.1, Chloride Level 114H, Carbon Dioxide Level 21, Anion Gap 12, Blood Urea Nitrogen 51H, Creatinine 1.8H, Estimat Glomerular Filtration Rate 26.6, Glucose Level 110H, Uric Acid 4.5, Calcium Level 7.9L, Phosphorus Level 2.5, Magnesium Level 2.3, Total Bilirubin 0.4, Aspartate Amino Transf (AST/SGOT) 30, Alanine Aminotransferase (ALT/SGPT) 25, Alkaline Phosphatase 19L, Troponin I 0.040, Total Protein 5.2L, Albumin 2.5L, Globulin 2.7, Albumin/Globulin Ratio 0.9L, Carcinoembryonic Antigen [Pending], CA 19-9 Antigen [Pending], Thyroid Stimulating Hormone (TSH) 2.143 10/25/19 08:00: Stool Occult Blood [Pending] Height (Feet): 4 Height (Inches): 11.00 Weight (Pounds): 108 General Appearance: no apparent distress Cardiovascular: normal rate Respiratory/Chest: decreased breath sounds Abdomen: soft Theodore Melchor MD October 25, 2019 10:11
[2019-10-25 12:00] VITALS: BP 146/47
[2019-10-25] MEDS: NIFEdipine 10mg cap ORAL SCH ×2 (13:09→17:08)
[2019-10-25 16:00] VITALS: BP 144/55
[2019-10-25] MEDS ORDERED: Nulytely 4L ORAL SCH (16:00)
[2019-10-25 16:43] LABS: HEMOGLOBIN 7.6 G/DL (12.0-16.0); MEAN CORPUSCULAR VOLUME 96 FL (80-99); PLATELET COUNT 127 K/UL (150-450); RED BLOOD COUNT 2.51 M/UL (4.20-5.40); RED CELL DISTRIBUTION WIDTH 18.1 % (11.6-14.8); WHITE BLOOD COUNT 8.6 K/UL (4.8-10.8)
[2019-10-25 16:47] LABS: BASOPHILS % (AUTO) 1.2 % (0.0-2.0); EOSINOPHILS % (AUTO) 1.7 % (0.0-3.0); LYMPHOCYTES % (AUTO) 9.4 % (20.0-45.0); MONOCYTES % (AUTO) 6.9 % (1.0-10.0); NEUTROPHILS % (AUTO) 80.8 % (45.0-75.0)
--- NOTE | 2019-10-25 17:15 | Consultation ---
DATE OF CONSULTATION: 10/25/2019 CARDIOLOGY CONSULTATION CONSULTING PHYSICIAN: Hao Delacruz MD REFERRING PHYSICIAN: Shaji Mccartney MD REASON FOR CONSULTATION: Bradycardia. HISTORY OF PRESENT ILLNESS: The patient is an 88-year-old lady who was admitted for generalized weakness. The patient also had a syncope earlier and also experienced substernal chest pain to the left side. The patient also was short of breath even though she denies any fever or chills. The COVID screening was negative in the emergency room. The patient was admitted and a Cardiology consultation was obtained for further evaluation and management. REVIEW OF SYSTEMS: Review of systems was negative other than what was mentioned in the history of present illness. PAST MEDICAL HISTORY: Includes hypertension, diabetes, GI problems, , hyperlipidemia, arthritis. MEDICATIONS: Prior to admission include Zantac, lisinopril, aspirin, allopurinol. PHYSICAL EXAMINATION: VITAL SIGNS: Blood pressure of 145/47, pulse 65, respirations 18, temperature 98. HEAD AND NECK: Showed no JVD. LUNGS: Clear. CARDIOVASCULAR: Shows regular S1 and S2 with no gallop. ABDOMEN: Soft. EXTREMITIES: No pitting edema. LABORATORY DATA: Labs show white count of 9.7, hemoglobin of 8.7, initial hemoglobin was 5.3, hematocrit 24, and platelet count is . Sodium 144, potassium 4.7, BUN of 85, creatinine 1.8, and glucose of 144. Initial troponin was negative. BNP was 1200. ASSESSMENT AND PLAN: 1. Chest pain. This is likely due to demand ischemia in this patient with hemoglobin of only 5. The first troponin is negative. Repeat the EKG and repeat troponin. I will get an echocardiogram for further evaluation. 2. Hypertension. The patient is on Norvasc 5 mg daily and p.r.n. hydralazine to be continued. Lisinopril discontinued due to renal failure. 3. GI bleed with hemoglobin of 5.3, status post 2 units of blood transfusion and hemoglobin improved to 8.2. Further evaluation by Dr. Mccartney. 4. Status post syncope, likely due to severe anemia. 5. Gastroesophageal reflux disease. 6. Diabetes. The patient is already scheduled for EGD and colonoscopy on Saturday. Thank you very much Dr. Mccartney for allowing me to participate in the care of this patient. Please do not hesitate to contact me for any questions regarding my evaluation. The case was discussed with Dr. Mccartney as well. Hao Delacruz M.D. DR: LUCAS JOB#: [id number] CC:
[2019-10-25 20:00] VITALS: BP 143/51
[2019-10-26] VITALS (10 sets, daily range): BP systolic 122–153; BP diastolic 35–58
[2019-10-26] MEDS: D5 1/2NS 1,000 ML IV SCH ×2 (05:18→18:34)
[2019-10-26] MEDS: Nateglinide 60mg tab ORAL SCH ×3 (05:50→16:45)
[2019-10-26] MEDS: NS IVPB SCH ×2 (05:50→17:35)
[2019-10-26] MEDS: [UNRECOGNIZED DRUG - OTHER] IVPB SCH ×2 (05:50→17:35)
[2019-10-26] MEDS: NovoLOG Insulin Flexpen SUBQ SCH ×4 (06:19→21:00)
[2019-10-26 06:32] LABS: HEMATOCRIT 22.3 % (37.0-47.0); HEMOGLOBIN 7.8 G/DL (12.0-16.0); MEAN CORPUSCULAR VOLUME 88 FL (80-99); PLATELET COUNT 140 K/UL (150-450); RED BLOOD COUNT 2.52 M/UL (4.20-5.40); WHITE BLOOD COUNT 6.3 K/UL (4.8-10.8)
[2019-10-26 06:45] LABS: ALANINE AMINOTRANSFERASE 17 U/L (12-78); ALBUMIN 2.3 G/DL (3.4-5.0); ALBUMIN/GLOBULIN RATIO 0.9 (1.0-2.7); ALKALINE PHOSPHATASE 19 U/L (46-116); ANION GAP 10 mmol/L (5-15); ASPARTATE AMINO TRANSFERASE 31 U/L (15-37); BILIRUBIN,TOTAL 0.4 MG/DL (0.2-1.0); BLOOD UREA NITROGEN 22 mg/dL (7-18); CALCIUM 7.4 MG/DL (8.5-10.1); CARBON DIOXIDE 23 MMOL/L (21-32); CHLORIDE 113 MMOL/L (98-107); CREATININE 1.5 MG/DL (0.55-1.30); PHOSPHORUS 2.3 MG/DL (2.5-4.9); POTASSIUM 3.8 MMOL/L (3.5-5.1); SODIUM 145 MMOL/L (136-145)
[2019-10-26 06:52] LABS: CHOLESTEROL 151 MG/DL (< 200); HDL CHOLESTEROL 36 MG/DL (40-60); TRIGLYCERIDES 281 MG/DL (30-150)
--- NOTE | 2019-10-26 08:40 | Pre-Procedure Note/Attestation ---
Pre-Procedure Note/Attestation Complete Prior to Procedure Planned Procedure: not applicable Procedure Narrative: esophagogastroduodenoscopy and colonoscopy Indications for Procedure Pre-Operative Diagnosis: gib Attestation I attest that I discussed the nature of the procedure; its benefits; risks and complications; and alternatives (and the risks and benefits of such alternatives ), prior to the procedure, with the patient (or the patient's legal employee relations representative). I attest that, if there was a reasonable possibility of needing a blood transfusion, the patient (or the patient's legal employee relations representative) was given the [facility] standardized written summary, pursuant to the Tenzin Itzel Blood Safety Act ([place] Health and Safety Code # 1645, as amended). I attest that I re-evaluated the patient just prior to the surgery and that there has been no change in the patient's H&P, except as documented below: Rios Mccartney MD Oct 26, 2019 08:40
[2019-10-26] MEDS: NIFEdipine 10mg cap ORAL SCH ×3 (09:00→17:35)
[2019-10-26] MEDS: Docusate 250mg cap ORAL SCH (09:00)
[2019-10-26] MEDS: Pantoprazole Inj IVP SCH ×2 (09:04→22:02)
[2019-10-26] MEDS: Sucralfate 1gm tab ORAL SCH ×4 (09:04→22:02)
--- NOTE | 2019-10-26 09:05 | Pulmonology Progress Note ---
Beronica Newman SOUND TRUCK OPERATOR 10/26/19 0905: Subjective ROS Limited/Unobtainable: No Allergies: Coded Allergies: No Known Allergies (Verified , 01/12/11) Subjective leuk resolved, HH 7.8/22.3 this am creat down to 1.5 awaiting fro EGD and colon this am Objective Last 24 Hour Vital Signs Date Time Temp Pulse Resp B/P (MAP) Pulse Ox O2 Delivery O2 Flow Rate FiO2 10/26/19 08:00 98.2 69 18 139/35 (69) 99 10/26/19 04:00 99.0 73 20 148/50 (82) 98 10/26/19 04:00 61 10/26/19 00:00 71 10/26/19 00:00 97.7 70 18 153/51 (85) 100 10/25/19 21:00 Room Air 10/25/19 20:00 62 10/25/19 20:00 97.9 68 20 143/51 (81) 97 10/25/19 17:08 68 144/55 10/25/19 16:00 97.7 68 22 144/55 (84) 95 10/25/19 15:36 61 10/25/19 13:09 64 148/59 10/25/19 12:00 97.5 61 20 146/47 (80) 96 10/25/19 11:40 63 Intake and Output 10/25/19 10/26/19 19:00 07:00 Intake Total 2115 ml 3100 ml Balance 2115 ml 3100 ml Intake Oral 2040 ml 2500 ml IV Total 75 ml 600 ml # Voids 10 5 # Bowel Movements 7 Objective General Appearance: no apparent distress, alert, awake and responsive elderly female Lines, tubes and drains: peripheral HEENT: normocephalic, atraumatic, anicteric, PERRL Neck: non-tender, supple Respiratory/Chest: chest wall non-tender, lungs clear, no respiratory distress , no accessory muscle use Cardiovascular/Chest: regular rhythm Abdomen: normal bowel sounds, non tender, soft Extremities: no calf tenderness, normal capillary refill Neurologic: no motor/sensory deficits, alert, oriented x 3, responsive Musculoskeletal: atrophy - BLE Microbiology Date/Time Source Procedure Growth Status 10/23/19 19:20 Blood Blood Culture - Preliminary NO GROWTH AFTER 48 HOURS Resulted 5/29/20 19:05 Blood Blood Culture - Preliminary NO GROWTH AFTER 48 HOURS Resulted 10/23/19 19:18 Nasopharynx Coronavirus COVID-19 PCR ([facility]) - Final Complete 10/23/19 20:50 Straight Cath Urine Culture - Final Mixed Gram Positive Organism Complete Laboratory Tests 10/25/19 16:16: White Blood Count 8.6, Red Blood Count 2.51L, Hemoglobin 7.6L, Hematocrit 24.0L , Mean Corpuscular Volume 96#, Mean Corpuscular Hemoglobin 30.2, Mean Corpuscular Hemoglobin Concent 31.5L, Red Cell Distribution Width 18.1H, Platelet Count 127L, Mean Platelet Volume 6.5, Neutrophils (%) (Auto) 80.8H, Lymphocytes (%) (Auto) 9.4L, Monocytes (%) (Auto) 6.9, Eosinophils (%) (Auto) 1.7, Basophils (%) (Auto) 1.2 10/26/19 04:00: White Blood Count 6.3, Red Blood Count 2.52L, Hemoglobin 7.8L, Hematocrit 22.3L , Mean Corpuscular Volume 88#, Mean Corpuscular Hemoglobin 30.9, Mean Corpuscular Hemoglobin Concent 34.9, Red Cell Distribution Width 17.0H, Platelet Count 140L, Mean Platelet Volume 5.3L, Neutrophils (%) (Auto) , Lymphocytes (%) (Auto) , Monocytes (%) (Auto) , Eosinophils (%) (Auto) , Basophils (%) (Auto) , Sodium Level 145, Potassium Level 3.8, Chloride Level 113H, Carbon Dioxide Level 23, Anion Gap 10, Blood Urea Nitrogen 22H, Creatinine 1.5H, Estimat Glomerular Filtration Rate 32.8, Glucose Level 120H, Calcium Level 7.4L, Phosphorus Level 2.3L, Magnesium Level 2.2, Total Bilirubin 0.4, Aspartate Amino Transf (AST/SGOT) 31, Alanine Aminotransferase (ALT/SGPT) 17, Alkaline Phosphatase 19L, Troponin I 0.019, Pro-B-Type Natriuretic Peptide 1648H, Total Protein 5.0L, Albumin 2.3L, Globulin 2.7, Albumin/Globulin Ratio 0.9L, Triglycerides Level 281H, Cholesterol Level 151, LDL Cholesterol 69, HDL Cholesterol 36L, Cholesterol/HDL Ratio 4.2 Current Medications Medications (Trade) Dose Ordered Sig/Kecia Route PRN Reason Start Time Stop Time Status Last Admin Dose Admin Acetaminophen (Tylenol) 650 mg Q4H PRN ORAL Mild Pain (Pain Scale 1-3) 10/23/19 23:15 11/22/19 23:14 Dextrose (Dextrose 50%) 25 ml Q30M PRN IV Hypoglycemia 10/24/19 00:15 01/22/20 00:14 Dextrose (Dextrose 50%) 50 ml Q30M PRN IV Hypoglycemia 10/24/19 00:15 01/22/20 00:14 Dextrose/Sodium Chloride 1,000 ml @ 75 mls/hr [id number] IV 10/24/19 13:15 11/23/19 13:14 10/26/19 05:18 Diphenhydramine HCl (Benadryl) 25 mg Q6H PRN IVP Itching 10/23/19 23:15 11/22/19 23:14 Docusate Sodium (Colace) 250 mg DAILY ORAL 10/24/19 09:00 11/23/19 08:59 10/25/19 08:43 Hydralazine HCl (Apresoline) 25 mg Q4HR PRN ORAL Blood pressure over 160 systol 10/24/19 13:15 01/22/20 13:14 Insulin Aspart (NovoLOG) BEFORE MEALS AND HS SUBQ 10/24/19 06:30 01/22/20 06:29 10/24/19 12:48 Magnesium Hydroxide (Mom) 30 ml DAILYPRN PRN ORAL Constipation 10/23/19 23:15 11/22/19 23:14 Meclizine HCl (Antivert) 12.5 mg Q6H PRN ORAL for dizziness 10/23/19 23:30 11/22/19 23:29 Morphine Sulfate (Morphine Sulfate) 1 mg Q4H PRN IVP Severe Pain (Pain Scale 7-10) 10/23/19 23:15 10/30/19 23:14 Nateglinide (Starlix) 60 mg TIAC ORAL 10/25/19 11:30 11/23/19 16:29 10/25/19 17:09 Nifedipine (Adalat) 10 mg TID ORAL 10/25/19 13:00 11/24/19 12:59 10/25/19 17:08 Pantoprazole (Protonix) 40 mg EVERY 12 HOURS IVP 10/24/19 13:30 11/23/19 13:29 10/25/19 21:02 Piperacillin Sod/ Tazobactam Sod 3.375 gm/Sodium Chloride 110 ml @ 27.5 mls/hr Q12H IVPB 10/24/19 06:00 10/31/19 05:59 10/26/19 05:50 Sucralfate (Carafate) 1 gm FOUR TIMES A DAY ORAL 10/24/19 18:00 01/22/20 17:59 10/25/19 21:02 Assessment/Plan Assessment/Plan ASSESSMENT Anemia of acute blood loss requiring blood transfusion GI bleeding Chest pain with shortness of breath, possibly due to severe anemia Syncope , likely due to severe anemia Leukocytosis-resolved Suspected [id number] out Acute renal failure probably on CKD Hypertension Diabetes mellitus with hyperglycemia 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 Cholelithiasis without evidence of cholecystitis Diverticular disease without evidence of acute diverticulitis Protein calorie malnutrition PLAN OF CARE telemetry CL diet Protonix IV q 12 s/p 2 u PRBC this am HH 7.8/22.3 monitor H&H with goal to keep Hgb above 7 anemia work-up c/w anemia of iron deficiency stool OB + CEA WNL, CA 19-9 pending EGD and colon this am heme eval O2 prn titrate to keep sat above 90% IVF monitor renal parameters, lytes, avoid nephrotoxic nephro consult appreciated prob ARF on CKD given findings of R renal atrophy on imaging , off RAIAS creat trending down empiric abx/Zosyn, trend WBC, possibly reactive, leuk already resolved SARS CoV2 by PCR NGT; dc isolation BCX NGTD UCX NGT BS management with Starlix and sliding scale of insulin IV fluids with dextrose while n.p.o., when start eating dc dextrose BP management with RAISA inhibitor troponin NGT, tele NGT, no further complaints of CP or SOB, cardio eval appreciated dietary eval case discussed and evaluated by supervising physician Shaji Mccartney MD 10/26/19 1255: Subjective Allergies: Coded Allergies: No Known Allergies (Verified , 01/12/11) Assessment/Plan Assessment/Plan Patient seen and examine with SOUND TRUCK OPERATOR, agree with above A&P as it reflects our joint deliberations. Beronica Newman NP Oct 26, 2019 09:05 Shaji Mccartney MD Oct 26, 2019 12:55
--- NOTE | 2019-10-26 09:08 | Anethesia Preoperative Eval ---
Anesthesia Pre-op PMH/ROS General Date of Evaluation: Oct 26, 2019 Time of Evaluation: 09:06 Anesthesiologist: elis ASA Score: ASA 4 Mallampati Score Class I : Soft palate, uvula, fauces, pillars visible Class II: Soft palate, uvula, fauces visible Class III: Soft palate, base of uvula visible Class IV: Only hard plate visible Mallampati Classification: Class II Surgeon: raghav Diagnosis: gi bleed, anemia Surgical Procedure: egd/colonoscopy Anesthesia History: none Social History: smoking - status Family History: no anesthesia problems Allergies: Coded Allergies: No Known Allergies (Verified , 01/12/11) Medications: see eMAR Patient NPO?: Yes Past Medical History Cardiovascular: Reports: HTN, other - acute coronary syndrome, syncope Gastrointestinal/Genitourinary: Reports: GERD, other - acute renal failure, diarrhea Neurologic/Psychiatric: Reports: depression/anxiety Endocrine: Reports: DM HEENT: Reports: cataract (L), cataract (R) Hematology/Immune: Reports: anemia Musculoskeletal/Integumentary: Reports: OA, other - cellulitis Anesthesia Pre-op Phys. Exam Physician Exam Last Vital Signs Date Time Temp Pulse Resp B/P (MAP) Pulse Ox O2 Delivery O2 Flow Rate FiO2 10/26/19 08:00 98.2 69 18 139/35 (69) 99 10/25/19 21:00 Room Air Constitutional: NAD Neurologic: CN 2-12 intact Cardiovascular: RRR Respiratory: CTA Gastrointestinal: S/NT/ND Airway Exam Mallampati Score: Class II Neck: flexible TMD: 2fb Anesthesia Pre-op A/P Labs Hematology Test 10/25/19 16:16 10/26/19 04:00 White Blood Count 8.6 K/UL (4.8-10.8) 6.3 K/UL (4.8-10.8) Red Blood Count 2.51 M/UL (4.20-5.40) L 2.52 M/UL (4.20-5.40) L Hemoglobin 7.6 G/DL (12.0-16.0) L 7.8 G/DL (12.0-16.0) L Hematocrit 24.0 % (37.0-47.0) L 22.3 % (37.0-47.0) L Mean Corpuscular Volume 96 FL (80-99) # 88 FL (80-99) # Mean Corpuscular Hemoglobin 30.2 PG (27.0-31.0) 30.9 PG (27.0-31.0) Mean Corpuscular Hemoglobin Concent 31.5 G/DL (32.0-36.0) L 34.9 G/DL (32.0-36.0) Red Cell Distribution Width 18.1 % (11.6-14.8) H 17.0 % (11.6-14.8) H Platelet Count 127 K/UL (150-450) L 140 K/UL (150-450) L Mean Platelet Volume 6.5 FL (6.5-10.1) 5.3 FL (6.5-10.1) L Neutrophils (%) (Auto) 80.8 % (45.0-75.0) H % (45.0-75.0) Lymphocytes (%) (Auto) 9.4 % (20.0-45.0) L % (20.0-45.0) Monocytes (%) (Auto) 6.9 % (1.0-10.0) % (1.0-10.0) Eosinophils (%) (Auto) 1.7 % (0.0-3.0) % (0.0-3.0) Basophils (%) (Auto) 1.2 % (0.0-2.0) % (0.0-2.0) Chemistry Test 10/26/19 04:00 Sodium Level 145 MMOL/L (136-145) Potassium Level 3.8 MMOL/L (3.5-5.1) Chloride Level 113 MMOL/L (98-107) H Carbon Dioxide Level 23 MMOL/L (21-32) Anion Gap 10 mmol/L (5-15) Blood Urea Nitrogen 22 mg/dL (7-18) H Creatinine 1.5 MG/DL (0.55-1.30) H Estimat Glomerular Filtration Rate 32.8 mL/min (>60) Glucose Level 120 MG/DL (74-106) H Calcium Level 7.4 MG/DL (8.5-10.1) L Phosphorus Level 2.3 MG/DL (2.5-4.9) L Magnesium Level 2.2 MG/DL (1.8-2.4) Total Bilirubin 0.4 MG/DL (0.2-1.0) Aspartate Amino Transf (AST/SGOT) 31 U/L (15-37) Alanine Aminotransferase (ALT/SGPT) 17 U/L (12-78) Alkaline Phosphatase 19 U/L (46-116) L Troponin I 0.019 ng/mL (0.000-0.056) Pro-B-Type Natriuretic Peptide 1648 pg/mL (0-125) H Total Protein 5.0 G/DL (6.4-8.2) L Albumin 2.3 G/DL (3.4-5.0) L Globulin 2.7 g/dL Albumin/Globulin Ratio 0.9 (1.0-2.7) L Triglycerides Level 281 MG/DL (30-150) H Cholesterol Level 151 MG/DL (< 200) LDL Cholesterol 69 mg/dL (<100) HDL Cholesterol 36 MG/DL (40-60) L Cholesterol/HDL Ratio 4.2 (3.3-4.4) Risk Assessment & Plan Assessment: [email or web address] Plan: mac Status Change Before Surgery: No Pre-Antibiotics Drug: Liliya Irwin MD Oct 26, 2019 09:08
[2019-10-26] MEDS ORDERED: Midazolam 2mg/2ml Inj IVP PRN (09:15)
[2019-10-26] MEDS ORDERED: DiphenhydrAMINE 50mg/ml Inj IVP PRN (09:15)
[2019-10-26] MEDS ORDERED: fentaNYL 100 mcg/2 mL IV PRN (09:15)
[2019-10-26] MEDS ORDERED: Atropine Inj 1mg/10ml Syr IV PRN (09:15)
--- NOTE | 2019-10-26 09:41 | Nephrology Progress Note ---
Assessment/Plan Problem List: (1) Renal failure (ARF), acute on chronic (2) HTN (hypertension) (3) Diabetes (4) GI bleed (5) Anemia due to blood loss Assessment This 88-year-old female is admitted with severe anemia as a result of acute blood loss through the GI tract. Renal failure mainly appears to be prerenal as a result of GI bleed. May have underlying chronic kidney disease due to history of hypertension and diabetes mellitus. And also right side renal atrophy on imaging Chest pain, shortness of breath, syncope, all most likely secondary to severe anemia. 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 Hypoalbuminemia . Plan Renal parameters much improved Per GI advice Hold RAISA inhibitors, while monitoring renal parameters hydralazine as needed for blood pressure over 160 systolic My order of Norvasc was discontinued by Dr. Dumont Transfuse as needed. Check iron panel B12 and folate level and ferritin level Slow hydration Monitor renal parameters Monitor hemoglobin and hematocrit Monitor blood sugar Urine studies Discussed with RN Per orders Subjective ROS Limited/Unobtainable: No Constitutional: Reports: malaise Objective Objective Last 24 Hour Vital Signs Date Time Temp Pulse Resp B/P (MAP) Pulse Ox O2 Delivery O2 Flow Rate FiO2 10/26/19 08:00 Room Air 10/26/19 08:00 65 10/26/19 08:00 98.2 69 18 139/35 (69) 99 10/26/19 04:00 99.0 73 20 148/50 (82) 98 10/26/19 04:00 61 10/26/19 00:00 71 10/26/19 00:00 97.7 70 18 153/51 (85) 100 10/25/19 21:00 Room Air 10/25/19 20:00 62 10/25/19 20:00 97.9 68 20 143/51 (81) 97 10/25/19 17:08 68 144/55 10/25/19 16:00 97.7 68 22 144/55 (84) 95 10/25/19 15:36 61 10/25/19 13:09 64 148/59 10/25/19 12:00 97.5 61 20 146/47 (80) 96 10/25/19 11:40 63 Intake and Output 10/25/19 10/26/19 19:00 07:00 Intake Total 2115 ml 3100 ml Balance 2115 ml 3100 ml Intake Oral 2040 ml 2500 ml IV Total 75 ml 600 ml # Voids 10 5 # Bowel Movements 7 Laboratory Tests 10/25/19 16:16: White Blood Count 8.6, Red Blood Count 2.51L, Hemoglobin 7.6L, Hematocrit 24.0L , Mean Corpuscular Volume 96#, Mean Corpuscular Hemoglobin 30.2, Mean Corpuscular Hemoglobin Concent 31.5L, Red Cell Distribution Width 18.1H, Platelet Count 127L, Mean Platelet Volume 6.5, Neutrophils (%) (Auto) 80.8H, Lymphocytes (%) (Auto) 9.4L, Monocytes (%) (Auto) 6.9, Eosinophils (%) (Auto) 1.7, Basophils (%) (Auto) 1.2 10/26/19 04:00: White Blood Count 6.3, Red Blood Count 2.52L, Hemoglobin 7.8L, Hematocrit 22.3L , Mean Corpuscular Volume 88#, Mean Corpuscular Hemoglobin 30.9, Mean Corpuscular Hemoglobin Concent 34.9, Red Cell Distribution Width 17.0H, Platelet Count 140L, Mean Platelet Volume 5.3L, Neutrophils (%) (Auto) , Lymphocytes (%) (Auto) , Monocytes (%) (Auto) , Eosinophils (%) (Auto) , Basophils (%) (Auto) , Sodium Level 145, Potassium Level 3.8, Chloride Level 113H, Carbon Dioxide Level 23, Anion Gap 10, Blood Urea Nitrogen 22H, Creatinine 1.5H, Estimat Glomerular Filtration Rate 32.8, Glucose Level 120H, Calcium Level 7.4L, Phosphorus Level 2.3L, Magnesium Level 2.2, Total Bilirubin 0.4, Aspartate Amino Transf (AST/SGOT) 31, Alanine Aminotransferase (ALT/SGPT) 17, Alkaline Phosphatase 19L, Troponin I 0.019, Pro-B-Type Natriuretic Peptide 1648H, Total Protein 5.0L, Albumin 2.3L, Globulin 2.7, Albumin/Globulin Ratio 0.9L, Triglycerides Level 281H, Cholesterol Level 151, LDL Cholesterol 69, HDL Cholesterol 36L, Cholesterol/HDL Ratio 4.2 Height (Feet): 4 Height (Inches): 11.00 Weight (Pounds): 108 General Appearance: no apparent distress Cardiovascular: normal rate Respiratory/Chest: decreased breath sounds Abdomen: soft Theodore Melchor MD Oct 26, 2019 09:41
[2019-10-26] MEDS ORDERED: Lidocaine 1% MPF 10mg/ml 5ml ONE (10:00)
[2019-10-26] MEDS ORDERED: NS 500ML IVPB ONE (10:00)
--- NOTE | 2019-10-26 10:37 | Endoscopy Procedure Note ---
Endoscopy Procedure Note General Indication for Procedure: anemia Procedures Performed: EGD, colonoscopy Operative Findings/Diagnosis: 4 colon polyps Specimen: yes Pt Tolerated Procedure Well: Yes Estimated Blood Loss: none Anesthesia Anesthesiologist: tawanda Anesthesia: MAC Inserted Devices Implant(s) used?: No GI Core Measures 50 yrs or older w/o bx or poly: Not Applicable 10yrs. F/U recommended: Not Applicable Rios Mccartney MD Oct 26, 2019 10:37
[2019-10-26] MEDS ORDERED: Potassium Phosphate 20 MM in NS 275 ML IV ONE (11:00)
--- NOTE | 2019-10-26 11:48 | Immediate Post-Op Evaluation ---
Immediate Post-Op Evalulation Immediate Post-Op Evalulation Procedure: egd/colonoscopy w/bx Date of Evaluation: Oct 26, 2019 Time of Evaluation: 10:52 IV Fluids: 300ml 0.9ns Blood Products: none Estimated Blood Loss: negligible Blood Pressure Systolic: 122 Blood Pressure Diastolic: 49 Pulse Rate: 53 Respiratory Rate: 18 O2 Sat by Pulse Oximetry: 100 Temperature (Fahrenheit): 97.8 Pain Score (1-10): 0 Nausea: No Vomiting: No Complications none Patient Status: awake, reacts, patent Drug: Liliya Irwin MD Oct 26, 2019 11:48
--- NOTE | 2019-10-26 11:49 | 48 Hour Post Anesthesia Eval ---
Post Anesthesia Evaluation Procedure: egd/colonoscopy w/bx Date of Evaluation: Oct 26, 2019 Time of Evaluation: 10:54 Blood Pressure Systolic: 123 0: 55 Pulse Rate: 58 Respiratory Rate: 18 Temperature (Fahrenheit): 97.8 O2 Sat by Pulse Oximetry: 100 Airway: patent Nausea: No Vomiting: No Pain Intensity: 0 Hydration Status: adequate Cardiopulmonary Status: stable Mental Status/LOC: patient returned to baseline Post-Anesthesia Complications: none Follow-up care needed: N/A Liliya Joshi MD Oct 26, 2019 11:49
--- NOTE | 2019-10-26 13:15 | Cardiac Electrophysiology PN ---
Assessment/Plan Assessment/Plan 1. Chest pain due to demand ischemia in this patient with hemoglobin of only 5. Troponins negative and echo nl EF 2. Hypertension. On Procardia 10 po tid and p.r.n. hydralazine 3. GI bleed with hemoglobin of 5.3, status post 2 units of blood transfusion and hemoglobin improved to 8.2. S/P EGD and colonoscopy by Dr. Mccartney. 4. Status post syncope, likely due to severe anemia. 5. Gastroesophageal reflux disease. 6. Diabetes. Subjective Subjective Had EGD and colonoscopy today for OB positive. In SR Objective Last 24 Hour Vital Signs Date Time Temp Pulse Resp B/P (MAP) Pulse Ox O2 Delivery O2 Flow Rate FiO2 10/26/19 12:00 58 10/26/19 11:49 58 18 100 10/26/19 11:48 53 18 100 10/26/19 11:00 98.0 57 22 150/52 100 Nasal Cannula 3 10/26/19 10:50 55 16 129/47 100 Nasal Cannula 3 10/26/19 10:45 58 24 123/55 100 Nasal Cannula 3 10/26/19 10:40 97.8 53 18 127/49 100 Nasal Cannula 3 10/26/19 09:00 65 139/35 10/26/19 08:00 Room Air 10/26/19 08:00 65 10/26/19 08:00 98.2 69 18 139/35 (69) 99 10/26/19 04:00 99.0 73 20 148/50 (82) 98 10/26/19 04:00 61 10/26/19 00:00 71 10/26/19 00:00 97.7 70 18 153/51 (85) 100 10/25/19 21:00 Room Air 10/25/19 20:00 62 10/25/19 20:00 97.9 68 20 143/51 (81) 97 10/25/19 17:08 68 144/55 10/25/19 16:00 97.7 68 22 144/55 (84) 95 10/25/19 15:36 61 Intake and Output 10/25/19 10/26/19 19:00 07:00 Intake Total 2115 ml 3100 ml Balance 2115 ml 3100 ml Intake Oral 2040 ml 2500 ml IV Total 75 ml 600 ml # Voids 10 5 # Bowel Movements 7 Laboratory Tests Test 5/31/20 16:16 10/26/19 04:00 White Blood Count 8.6 K/UL (4.8-10.8) 6.3 K/UL (4.8-10.8) Red Blood Count 2.51 M/UL (4.20-5.40) L 2.52 M/UL (4.20-5.40) L Hemoglobin 7.6 G/DL (12.0-16.0) L 7.8 G/DL (12.0-16.0) L Hematocrit 24.0 % (37.0-47.0) L 22.3 % (37.0-47.0) L Mean Corpuscular Volume 96 FL (80-99) # 88 FL (80-99) # Mean Corpuscular Hemoglobin 30.2 PG (27.0-31.0) 30.9 PG (27.0-31.0) Mean Corpuscular Hemoglobin Concent 31.5 G/DL (32.0-36.0) L 34.9 G/DL (32.0-36.0) Red Cell Distribution Width 18.1 % (11.6-14.8) H 17.0 % (11.6-14.8) H Platelet Count 127 K/UL (150-450) L 140 K/UL (150-450) L Mean Platelet Volume 6.5 FL (6.5-10.1) 5.3 FL (6.5-10.1) L Neutrophils (%) (Auto) 80.8 % (45.0-75.0) H % (45.0-75.0) Lymphocytes (%) (Auto) 9.4 % (20.0-45.0) L % (20.0-45.0) Monocytes (%) (Auto) 6.9 % (1.0-10.0) % (1.0-10.0) Eosinophils (%) (Auto) 1.7 % (0.0-3.0) % (0.0-3.0) Basophils (%) (Auto) 1.2 % (0.0-2.0) % (0.0-2.0) Sodium Level 145 MMOL/L (136-145) Potassium Level 3.8 MMOL/L (3.5-5.1) Chloride Level 113 MMOL/L (98-107) H Carbon Dioxide Level 23 MMOL/L (21-32) Anion Gap 10 mmol/L (5-15) Blood Urea Nitrogen 22 mg/dL (7-18) H Creatinine 1.5 MG/DL (0.55-1.30) H Estimat Glomerular Filtration Rate 32.8 mL/min (>60) Glucose Level 120 MG/DL (74-106) H Calcium Level 7.4 MG/DL (8.5-10.1) L Phosphorus Level 2.3 MG/DL (2.5-4.9) L Magnesium Level 2.2 MG/DL (1.8-2.4) Total Bilirubin 0.4 MG/DL (0.2-1.0) Aspartate Amino Transf (AST/SGOT) 31 U/L (15-37) Alanine Aminotransferase (ALT/SGPT) 17 U/L (12-78) Alkaline Phosphatase 19 U/L (46-116) L Troponin I 0.019 ng/mL (0.000-0.056) Pro-B-Type Natriuretic Peptide 1648 pg/mL (0-125) H Total Protein 5.0 G/DL (6.4-8.2) L Albumin 2.3 G/DL (3.4-5.0) L Globulin 2.7 g/dL Albumin/Globulin Ratio 0.9 (1.0-2.7) L Triglycerides Level 281 MG/DL (30-150) H Cholesterol Level 151 MG/DL (< 200) LDL Cholesterol 69 mg/dL (<100) HDL Cholesterol 36 MG/DL (40-60) L Cholesterol/HDL Ratio 4.2 (3.3-4.4) Microbiology Date/Time Source Procedure Growth Status 10/23/19 19:20 Blood Blood Culture - Preliminary NO GROWTH AFTER 48 HOURS Resulted 10/23/19 19:05 Blood Blood Culture - Preliminary NO GROWTH AFTER 48 HOURS Resulted 10/23/19 19:18 Nasopharynx Coronavirus COVID-19 PCR ([facility]) - Final Complete 10/23/19 20:50 Straight Cath Urine Culture - Final Mixed Gram Positive Organism Complete Objective HEAD AND NECK: No JVD. LUNGS: Clear. CARDIOVASCULAR: Regular S1 and S2 with no gallop. ABDOMEN: Soft. EXTREMITIES: No pitting edema. Hao Delacruz MD Oct 26, 2019 13:15
--- NOTE | 2019-10-26 16:30 | Procedure Note ---
DATE OF PROCEDURE: 10/26/2019 SURGEON: Rios Mccartney MD. PROCEDURE: Upper endoscopy with biopsy and colonoscopy with biopsy. ANESTHESIA: Per Dr. Farnsworth. INSTRUMENT: Olympus adult flexible upper endoscope and colonoscope. INDICATION: Anemia. REASON FOR PROCEDURE: The procedure, risks, benefits, and possible consequences, including hemorrhage, aspiration, perforation and infection, and alternative treatments, were explained to the patient/legal guardian by Dr. Rios Mccartney and the patient/legal guardian understood and accepted these risks. DESCRIPTION OF PROCEDURE: After informed consent was obtained and patient was adequately sedated, Olympus upper endoscope was advanced from mouth into the second portion of the duodenum and retroflexion was performed in the stomach. Patient had evidence of diffuse gastritis. Random biopsies from antrum was obtained to rule out H. pylori infection. Otherwise, the rest of upper endoscopic examination grossly within normal limits. At this time, the upper endoscope was retrieved. Patient was turned over for colonoscopy. First, rectal exam was performed, which was positive for internal hemorrhoids. Then the scope was advanced from rectum into the area of ileocecal valve. We could not get all the way down into the cecum. Patient became bradycardic when we pressure on the abdomen to push the scope in, so we decided not to pursue too much, but we were able to see the ileocecal valve. Patient had diverticulosis, both in the right and left colon. Patient had evidence of 4 polyps, 2 in ascending, 1 in transverse, 1 in sigmoid. All removed with the cold biopsy forceps technique. Retroflexion of the rectum showed evidence of internal hemorrhoids. SUMMARY OF FINDINGS: 1. Gastritis, status post biopsy. 2. Four colonic polyps removed. See above for details. 3. Diverticulosis. RECOMMENDATIONS: 1. Follow up biopsy results and treat accordingly. 2. Given this profound anemia, given the stool OB positivity, patient will need outpatient followup for capsule endoscopy. I want to thank, Dr. Mccartney, for this kind referral. Rios Mccartney M.D. DR: GRACE JOB#: [id number] CC: Shaji Mccartney M.D.
[2019-10-27] VITALS: BP 128/53
[2019-10-27 04:00] VITALS: BP 119/52
[2019-10-27] MEDS: NS IVPB SCH (06:20)
[2019-10-27] MEDS: [UNRECOGNIZED DRUG - OTHER] IVPB SCH (06:20)
[2019-10-27] MEDS: NovoLOG Insulin Flexpen SUBQ SCH ×2 (06:30→11:30)
[2019-10-27] MEDS: Nateglinide 60mg tab ORAL SCH ×2 (06:45→11:30)
[2019-10-27 06:47] LABS: ANION GAP 10 mmol/L (5-15); BLOOD UREA NITROGEN 18 mg/dL (7-18); CALCIUM 7.1 MG/DL (8.5-10.1); CARBON DIOXIDE 21 MMOL/L (21-32); CHLORIDE 113 MMOL/L (98-107); CREATININE 1.5 MG/DL (0.55-1.30); POTASSIUM 4.2 MMOL/L (3.5-5.1); SODIUM 144 MMOL/L (136-145)
[2019-10-27 07:09] LABS: BASOPHILS % (AUTO) 0.8 % (0.0-2.0); EOSINOPHILS % (AUTO) 1.8 % (0.0-3.0); HEMATOCRIT 25.5 % (37.0-47.0); HEMOGLOBIN 8.9 G/DL (12.0-16.0); LYMPHOCYTES % (AUTO) 21.6 % (20.0-45.0); MEAN CORPUSCULAR VOLUME 90 FL (80-99); MONOCYTES % (AUTO) 6.5 % (1.0-10.0); NEUTROPHILS % (AUTO) 69.3 % (45.0-75.0); PLATELET COUNT 164 K/UL (150-450); RED BLOOD COUNT 2.84 M/UL (4.20-5.40); RED CELL DISTRIBUTION WIDTH 19.1 % (11.6-14.8)
[2019-10-27 08:12] VITALS: BP 118/46
--- NOTE | 2019-10-27 09:29 | Pulmonology Progress Note ---
Beronica Newman EXTERNAL GRINDER 10/27/19 0929: Subjective ROS Limited/Unobtainable: No Allergies: Coded Allergies: No Known Allergies (Verified , 01/12/11) Subjective leuk resolved, HH 8.9/25.5 this am creat down to 1.5 s/p EGD and colon 10/25 Objective Last 24 Hour Vital Signs Date Time Temp Pulse Resp B/P (MAP) Pulse Ox O2 Delivery O2 Flow Rate FiO2 10/27/19 08:18 Room Air 10/27/19 08:12 97.9 100 18 118/46 (70) 99 10/27/19 04:00 63 10/27/19 04:00 98.4 69 19 119/52 (74) 100 10/27/19 00:00 67 10/27/19 00:00 99.0 87 19 128/53 (78) 98 10/26/19 21:00 Room Air 10/26/19 20:00 66 10/26/19 20:00 99.7 70 19 135/58 (83) 99 10/26/19 17:35 67 122/45 10/26/19 16:00 67 10/26/19 16:00 98.2 93 18 122/45 (70) 98 10/26/19 13:30 103 145/57 10/26/19 12:00 58 10/26/19 12:00 97.9 103 18 145/57 (86) 98 10/26/19 11:49 58 18 100 10/26/19 11:48 53 18 100 10/26/19 11:00 98.0 57 22 150/52 100 Nasal Cannula 3 10/26/19 10:50 55 16 129/47 100 Nasal Cannula 3 10/26/19 10:45 58 24 123/55 100 Nasal Cannula 3 10/26/19 10:40 97.8 53 18 127/49 100 Nasal Cannula 3 Intake and Output 10/26/19 10/27/19 19:00 07:00 Intake Total 1542.776 ml 600 ml Output Total 500 ml Balance 1042.776 ml 600 ml Intake Oral 480 ml IV Total 1062.776 ml 600 ml Output Urine Total 500 ml # Voids 3 # Bowel Movements 2 Objective General Appearance: no apparent distress, alert, awake and responsive elderly female Lines, tubes and drains: peripheral HEENT: normocephalic, atraumatic, anicteric, PERRL Neck: non-tender, supple Respiratory/Chest: chest wall non-tender, lungs clear, no respiratory distress , no accessory muscle use Cardiovascular/Chest: regular rhythm Abdomen: normal bowel sounds, non tender, soft Extremities: no calf tenderness, normal capillary refill Neurologic: no motor/sensory deficits, alert, oriented x 3, responsive Musculoskeletal: atrophy - BLE Laboratory Tests 10/27/19 05:35: White Blood Count 7.0, Red Blood Count 2.84L, Hemoglobin 8.9L, Hematocrit 25.5L , Mean Corpuscular Volume 90, Mean Corpuscular Hemoglobin 31.3H, Mean Corpuscular Hemoglobin Concent 34.8, Red Cell Distribution Width 19.1H, Platelet Count 164, Mean Platelet Volume 5.3L, Neutrophils (%) (Auto) 69.3, Lymphocytes (%) (Auto) 21.6, Monocytes (%) (Auto) 6.5, Eosinophils (%) (Auto) 1.8, Basophils (%) (Auto) 0.8, Sodium Level 144, Potassium Level 4.2, Chloride Level 113H, Carbon Dioxide Level 21, Anion Gap 10, Blood Urea Nitrogen 18, Creatinine 1.5H, Estimat Glomerular Filtration Rate 32.8, Glucose Level 107H, Calcium Level 7.1L Current Medications Medications (Trade) Dose Ordered Sig/Kecia Route PRN Reason Start Time Stop Time Status Last Admin Dose Admin Acetaminophen (Tylenol) 650 mg Q4H PRN ORAL Mild Pain (Pain Scale 1-3) 10/23/19 23:15 11/22/19 23:14 Dextrose (Dextrose 50%) 25 ml Q30M PRN IV Hypoglycemia 10/24/19 00:15 01/22/20 00:14 Dextrose (Dextrose 50%) 50 ml Q30M PRN IV Hypoglycemia 10/24/19 00:15 01/22/20 00:14 Dextrose/Sodium Chloride 1,000 ml @ 75 mls/hr [id number] IV 10/24/19 13:15 11/23/19 13:14 10/26/19 18:34 Diphenhydramine HCl (Benadryl) 25 mg Q6H PRN IVP Itching 10/23/19 23:15 11/22/19 23:14 Docusate Sodium (Colace) 250 mg DAILY ORAL 10/24/19 09:00 11/23/19 08:59 10/25/19 08:43 Hydralazine HCl (Apresoline) 25 mg Q4HR PRN ORAL Blood pressure over 160 systol 10/24/19 13:15 01/22/20 13:14 Insulin Aspart (NovoLOG) BEFORE MEALS AND HS SUBQ 10/24/19 06:30 01/22/20 06:29 10/24/19 12:48 Magnesium Hydroxide (Mom) 30 ml DAILYPRN PRN ORAL Constipation 10/23/19 23:15 11/22/19 23:14 Meclizine HCl (Antivert) 12.5 mg Q6H PRN ORAL for dizziness 10/23/19 23:30 11/22/19 23:29 Morphine Sulfate (Morphine Sulfate) 1 mg Q4H PRN IVP Severe Pain (Pain Scale 7-10) 10/23/19 23:15 10/30/19 23:14 Nateglinide (Starlix) 60 mg TIAC ORAL 10/25/19 11:30 11/23/19 16:29 10/27/19 06:45 Nifedipine (Adalat) 10 mg TID ORAL 10/25/19 13:00 11/24/19 12:59 10/26/19 17:35 Pantoprazole (Protonix) 40 mg EVERY 12 HOURS IVP 10/24/19 13:30 11/23/19 13:29 10/26/19 22:02 Piperacillin Sod/ Tazobactam Sod 3.375 gm/Sodium Chloride 110 ml @ 27.5 mls/hr Q12H IVPB 10/24/19 06:00 10/31/19 05:59 10/27/19 06:20 Sucralfate (Carafate) 1 gm FOUR TIMES A DAY ORAL 10/24/19 18:00 01/22/20 17:59 10/26/19 22:02 Assessment/Plan Assessment/Plan ASSESSMENT Anemia of acute blood loss requiring blood transfusion GI bleeding Chest pain with shortness of breath, possibly due to severe anemia Syncope , likely due to severe anemia Leukocytosis-resolved Suspected [id number] out Acute renal failure probably on CKD Hypertension Diabetes mellitus with hyperglycemia 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 Cholelithiasis without evidence of cholecystitis Diverticular disease without evidence of acute diverticulitis Protein calorie malnutrition PLAN OF CARE telemetry diet as judy Protonix IV q 12 s/p 2 u PRBC this am 8.9/25.5 monitor H&H with goal to keep Hgb above 7 anemia work-up c/w anemia of iron deficiency stool OB + CEA WNL, CA 19-9 pending Venofer x 1 now s/p EGD and colon -> gastritis, 4 colonic polyps, s/p bx , fup with patho GI recommended OP SB capsule endoscopy O2 prn titrate to keep sat above 90% IVF monitor renal parameters, lytes, avoid nephrotoxic nephro consult appreciated prob ARF on CKD given findings of R renal atrophy on imaging , off RAISA creat trending down empiric abx/Zosyn, trend WBC, possibly reactive, leuk already resolved SARS CoV2 by PCR NGT; dc isolation BCX NGTD UCX NGT BS management with Starlix and sliding scale of insulin IV fluids with dextrose while n.p.o., when start eating dc dextrose BP management with RAISA inhibitor troponin NGT, tele NGT, no further complaints of CP or SOB, cardio eval appreciated dietary eval pt verbalizes that she lives with elderly and is concerned about who will take care of her SW eval for safe dc home with services vs SNF? PT eval stat pt is also concerned re PMD availability and potential change to anotehr , SW to address this issue as well dc plan for today after PT if safe home with services vs SNF will need OP SB capsule endoscopy case discussed and evaluated by supervising physician Shaji Mccartney MD 10/27/19 1439: Subjective Allergies: Coded Allergies: No Known Allergies (Verified , 01/12/11) Assessment/Plan Assessment/Plan Patient seen and examined with EXTERNAL GRINDER. Agree with above A&P as it reflects our joint deliberations. S/P EGD/COLO with gastritis, path noted. Will need WCE @ [facility] post discharge. Dr. Hanna notified on CS-link. Plan to D/C in am with . Beronica Newman EXTERNAL GRINDER Oct 27, 2019 09:29 Shaji Mccartney MD Oct 27, 2019 14:39
[2019-10-27] MEDS: NIFEdipine 10mg cap ORAL SCH (09:43)
[2019-10-27] MEDS: D5 1/2NS 1,000 ML IV SCH (09:43)
[2019-10-27] MEDS: Sucralfate 1gm tab ORAL SCH ×2 (09:44→14:25)
[2019-10-27] MEDS: Docusate 250mg cap ORAL SCH (09:44)
[2019-10-27] MEDS: Pantoprazole Inj IVP SCH (09:44)
--- NOTE | 2019-10-27 10:36 | CDS Physician Query ---
Clarification is required for compliance, coding accuracy, and to reflect severity of illness for this patient Dear Dr. Shaji Mccartney MD Date: 10/27/2019 Torch Solderer/CDS Name: Matt Doan Clinical Documentation States: "88 years old female with past medical history of diabetes mellitus, hypertension, presented to emergency department complaining of generalized weakness. Patient apparently passed out earlier that day. " [ H&P Shaji Mccartney MD 10/24/2019] ASSESSMENT: Anemia of acute blood loss requiring blood transfusion, rule out GI bleeding, Chest pain with shortness of breath, possibly due to severe anemia Syncope , likely due to severe anemia, Leukocytosis, Suspected COVID-19, Acute renal failure probably on CKD , possible sepsis Clinical findings show: 10/22 10/23 10/24 (19:12) (05:10) (:) Creatinine level: 2.3 1.8 1.8 BUN: 89 85 51 GFR: 20.0 26.6 26.6 Medication: Sodium Chloride 1000@999mls/hr IV (10/22-10/23) Please Clarify the type of renal failure below: [] Acute Renal Failure w/ Tubular Necrosis [] Acute Renal Failure w/ Cortical Necrosis [] Acute Renal Failure w/ Medullary Necrosis [] Acute Renal Failure (unspecified) [] Other: Present on Admission: [] Yes [] No [] Clinically Undetermined Physician signature Date Please also document in your Progress Notes and/or Discharge Summary and indicate if the condition was present on admission. RACHELL
[2019-10-27 11:43] VITALS: BP 133/39
--- NOTE | 2019-10-27 11:58 | General Progress Note ---
Assessment/Plan Problem List: (1) GI bleed ICD Codes: K92.2 - Gastrointestinal hemorrhage, unspecified SNOMED: 12396724 (2) Syncope ICD Codes: R55 - Syncope and collapse SNOMED: 639377131 (3) chest pain (4) Weakness ICD Codes: R53.1 - Weakness SNOMED: 10388754 (5) arthritis (6) HTN (hypertension) ICD Codes: I10 - HTN (hypertension) SNOMED: 80294572 (7) GERD (gastroesophageal reflux disease) ICD Codes: K21.9 - GERD (gastroesophageal reflux disease) SNOMED: 322145366 (8) Diabetes ICD Codes: E11.9 - Diabetes SNOMED: 49934735 Assessment/Plan: s/p EGd and colonoscopy: SUMMARY OF FINDINGS: 1. Gastritis, status post biopsy. 2. Four colonic polyps removed. See above for details. 3. Diverticulosis. RECOMMENDATIONS: 1. Follow up biopsy results and treat accordingly. 2. Given this profound anemia, given the stool OB positivity, patient will need outpatient followup for capsule endoscopy. stable H&H now will fu Subjective ROS Limited/Unobtainable: Yes Allergies: Coded Allergies: No Known Allergies (Verified , 01/12/11) Objective Last 24 Hour Vital Signs Date Time Temp Pulse Resp B/P (MAP) Pulse Ox O2 Delivery O2 Flow Rate FiO2 10/27/19 11:43 97.7 99 18 133/39 (70) 99 10/27/19 09:43 100 118/46 10/27/19 08:18 Room Air 10/27/19 08:12 97.9 100 18 118/46 (70) 99 10/27/19 07:44 73 10/27/19 04:00 63 10/27/19 04:00 98.4 69 19 119/52 (74) 100 10/27/19 00:00 67 10/27/19 00:00 99.0 87 19 128/53 (78) 98 10/26/19 21:00 Room Air 10/26/19 20:00 66 10/26/19 20:00 99.7 70 19 135/58 (83) 99 10/26/19 17:35 67 122/45 10/26/19 16:00 67 10/26/19 16:00 98.2 93 18 122/45 (70) 98 10/26/19 13:30 103 145/57 10/26/19 12:00 58 10/26/19 12:00 97.9 103 18 145/57 (86) 98 Intake and Output 10/26/19 10/27/19 18:59 06:59 Intake Total 1467.776 ml 675 ml Output Total 500 ml Balance 967.776 ml 675 ml Intake Oral 480 ml IV Total 987.776 ml 675 ml Output Urine Total 500 ml # Voids 3 # Bowel Movements 2 Laboratory Tests 10/27/19 05:35: White Blood Count 7.0, Red Blood Count 2.84L, Hemoglobin 8.9L, Hematocrit 25.5L , Mean Corpuscular Volume 90, Mean Corpuscular Hemoglobin 31.3H, Mean Corpuscular Hemoglobin Concent 34.8, Red Cell Distribution Width 19.1H, Platelet Count 164, Mean Platelet Volume 5.3L, Neutrophils (%) (Auto) 69.3, Lymphocytes (%) (Auto) 21.6, Monocytes (%) (Auto) 6.5, Eosinophils (%) (Auto) 1.8, Basophils (%) (Auto) 0.8, Sodium Level 144, Potassium Level 4.2, Chloride Level 113H, Carbon Dioxide Level 21, Anion Gap 10, Blood Urea Nitrogen 18, Creatinine 1.5H, Estimat Glomerular Filtration Rate 32.8, Glucose Level 107H, Calcium Level 7.1L Height (Feet): 4 Height (Inches): 11.00 Weight (Pounds): 108 General Appearance: no apparent distress EENT: normal ENT inspection Neck: supple Cardiovascular: normal rate Respiratory/Chest: decreased breath sounds Abdomen: normal bowel sounds, non tender, soft Extremities: non-tender Rios Mccartney MD Oct 27, 2019 11:58
--- NOTE | 2019-10-27 12:15 | Cardiac Electrophysiology PN ---
Assessment/Plan Assessment/Plan 1. Chest pain due to demand ischemia in this patient with hemoglobin of only 5. Troponins negative and echo nl EF 2. Hypertension. On Procardia 10 po tid and p.r.n. hydralazine. Change to Procardia xl 30 daily 3. GI bleed with hemoglobin of 5.3, status post 2 units of blood transfusion and hemoglobin improved to 8.2. S/P EGD and colonoscopy by Dr. Mccartney. 4. Status post syncope, likely due to severe anemia. 5. Gastroesophageal reflux disease. 6. Diabetes. Subjective Subjective Had EGD and colonoscopy 10/26/19 for OB positive. In SR. Placement pending Objective Last 24 Hour Vital Signs Date Time Temp Pulse Resp B/P (MAP) Pulse Ox O2 Delivery O2 Flow Rate FiO2 10/27/19 11:43 97.7 99 18 133/39 (70) 99 10/27/19 09:43 100 118/46 10/27/19 08:18 Room Air 10/27/19 08:12 97.9 100 18 118/46 (70) 99 10/27/19 07:44 73 10/27/19 04:00 63 10/27/19 04:00 98.4 69 19 119/52 (74) 100 10/27/19 00:00 67 10/27/19 00:00 99.0 87 19 128/53 (78) 98 10/26/19 21:00 Room Air 10/26/19 20:00 66 10/26/19 20:00 99.7 70 19 135/58 (83) 99 10/26/19 17:35 67 122/45 10/26/19 16:00 67 10/26/19 16:00 98.2 93 18 122/45 (70) 98 10/26/19 13:30 103 145/57 Intake and Output 10/26/19 10/27/19 19:00 07:00 Intake Total 1542.776 ml 600 ml Output Total 500 ml Balance 1042.776 ml 600 ml Intake Oral 480 ml IV Total 1062.776 ml 600 ml Output Urine Total 500 ml # Voids 3 # Bowel Movements 2 Laboratory Tests Test 10/27/19 05:35 White Blood Count 7.0 K/UL (4.8-10.8) Red Blood Count 2.84 M/UL (4.20-5.40) L Hemoglobin 8.9 G/DL (12.0-16.0) L Hematocrit 25.5 % (37.0-47.0) L Mean Corpuscular Volume 90 FL (80-99) Mean Corpuscular Hemoglobin 31.3 PG (27.0-31.0) H Mean Corpuscular Hemoglobin Concent 34.8 G/DL (32.0-36.0) Red Cell Distribution Width 19.1 % (11.6-14.8) H Platelet Count 164 K/UL (150-450) Mean Platelet Volume 5.3 FL (6.5-10.1) L Neutrophils (%) (Auto) 69.3 % (45.0-75.0) Lymphocytes (%) (Auto) 21.6 % (20.0-45.0) Monocytes (%) (Auto) 6.5 % (1.0-10.0) Eosinophils (%) (Auto) 1.8 % (0.0-3.0) Basophils (%) (Auto) 0.8 % (0.0-2.0) Sodium Level 144 MMOL/L (136-145) Potassium Level 4.2 MMOL/L (3.5-5.1) Chloride Level 113 MMOL/L (98-107) H Carbon Dioxide Level 21 MMOL/L (21-32) Anion Gap 10 mmol/L (5-15) Blood Urea Nitrogen 18 mg/dL (7-18) Creatinine 1.5 MG/DL (0.55-1.30) H Estimat Glomerular Filtration Rate 32.8 mL/min (>60) Glucose Level 107 MG/DL (74-106) H Calcium Level 7.1 MG/DL (8.5-10.1) L Objective HEAD AND NECK: No JVD. LUNGS: Clear. CARDIOVASCULAR: Regular S1 and S2 with no gallop. ABDOMEN: Soft. EXTREMITIES: No pitting edema. Hao Delacruz MD Oct 27, 2019 12:15
--- NOTE | 2019-10-27 14:10 | Nephrology Progress Note ---
Assessment/Plan Problem List: (1) Renal failure (ARF), acute on chronic (2) HTN (hypertension) (3) Diabetes (4) GI bleed (5) Anemia due to blood loss Assessment This 88-year-old female is admitted with severe anemia as a result of acute blood loss through the GI tract. Renal failure mainly appears to be prerenal as a result of GI bleed. May have underlying chronic kidney disease due to history of hypertension and diabetes mellitus. And also right side renal atrophy on imaging Chest pain, shortness of breath, syncope, all most likely secondary to severe anemia. 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 Hypoalbuminemia . Plan Renal parameters much improved Labs and data reviewed Stop IV hydration and continue to monitor renal parameters and electrolytes Previously: Hold RAISA inhibitors, while monitoring renal parameters hydralazine as needed for blood pressure over 160 systolic My order of Norvasc was discontinued by Dr. Dumont Transfuse as needed. Check iron panel B12 and folate level and ferritin level Slow hydration Monitor renal parameters Monitor hemoglobin and hematocrit Monitor blood sugar Urine studies Discussed with RN Per orders Subjective ROS Limited/Unobtainable: No Constitutional: Reports: malaise Objective Objective Last 24 Hour Vital Signs Date Time Temp Pulse Resp B/P (MAP) Pulse Ox O2 Delivery O2 Flow Rate FiO2 10/27/19 11:46 64 10/27/19 11:43 97.7 99 18 133/39 (70) 99 10/27/19 09:43 100 118/46 10/27/19 08:18 Room Air 10/27/19 08:12 97.9 100 18 118/46 (70) 99 10/27/19 07:44 73 10/27/19 04:00 63 10/27/19 04:00 98.4 69 19 119/52 (74) 100 10/27/19 00:00 67 10/27/19 00:00 99.0 87 19 128/53 (78) 98 10/26/19 21:00 Room Air 10/26/19 20:00 66 10/26/19 20:00 99.7 70 19 135/58 (83) 99 10/26/19 17:35 67 122/45 10/26/19 16:00 67 10/26/19 16:00 98.2 93 18 122/45 (70) 98 Intake and Output 10/26/19 10/27/19 19:00 07:00 Intake Total 1542.776 ml 600 ml Output Total 500 ml Balance 1042.776 ml 600 ml Intake Oral 480 ml IV Total 1062.776 ml 600 ml Output Urine Total 500 ml # Voids 3 # Bowel Movements 2 Laboratory Tests 10/27/19 05:35: White Blood Count 7.0, Red Blood Count 2.84L, Hemoglobin 8.9L, Hematocrit 25.5L , Mean Corpuscular Volume 90, Mean Corpuscular Hemoglobin 31.3H, Mean Corpuscular Hemoglobin Concent 34.8, Red Cell Distribution Width 19.1H, Platelet Count 164, Mean Platelet Volume 5.3L, Neutrophils (%) (Auto) 69.3, Lymphocytes (%) (Auto) 21.6, Monocytes (%) (Auto) 6.5, Eosinophils (%) (Auto) 1.8, Basophils (%) (Auto) 0.8, Sodium Level 144, Potassium Level 4.2, Chloride Level 113H, Carbon Dioxide Level 21, Anion Gap 10, Blood Urea Nitrogen 18, Creatinine 1.5H, Estimat Glomerular Filtration Rate 32.8, Glucose Level 107H, Calcium Level 7.1L Height (Feet): 4 Height (Inches): 11.00 Weight (Pounds): 108 General Appearance: no apparent distress Cardiovascular: tachycardia Respiratory/Chest: decreased breath sounds Abdomen: soft Theodore Melchor MD Oct 27, 2019 14:10
[2019-10-27] MEDS ORDERED: Iron Sucrose 100 MG in NS 55 ML IV SCH (15:15)
[2019-10-27] MEDS ORDERED: Iron Sucrose 100 MG in NS 55 ML IV ONE (21:00)
--- NOTE | 2019-10-28 09:51 | CDS Physician Query ---
Clarification is required for compliance, coding accuracy, and to reflect severity of illness for this patient Dear Dr. hSaji Mccartney MD Date: 10/27/2019 [employer] Supervisor/CDS Name: Matt Doan Clinical Documentation States: "88 years old female with past medical history of diabetes mellitus, hypertension, presented to emergency department complaining of generalized weakness. Patient apparently passed out earlier that day. " [ H&P Shaji Mccartney MD 10/24/2019] ASSESSMENT: Anemia of acute blood loss requiring blood transfusion, rule out GI bleeding, Chest pain with shortness of breath, possibly due to severe anemia Syncope , likely due to severe anemia, Leukocytosis, Suspected COVID-19, Acute renal failure probably on CKD , possible sepsis Clinical findings show: 10/22 10/23 10/24 (19:12) (05:10) (:) Creatinine level: 2.3 1.8 1.8 BUN: 89 85 51 GFR: 20.0 26.6 26.6 Medication: Sodium Chloride 1000@999mls/hr IV (10/22-10/23) Please Clarify the type of renal failure below: [] Acute Renal Failure w/ Tubular Necrosis [] Acute Renal Failure w/ Cortical Necrosis [] Acute Renal Failure w/ Medullary Necrosis [] Acute Renal Failure (unspecified) [] Other: Present on Admission: [] Yes [] No [] Clinically Undetermined Physician signature Date Please also document in your Progress Notes and/or Discharge Summary and indicate if the condition was present on admission. RACHELL
--- NOTE | 2019-10-29 16:35 | Discharge Summary ---
Discharge Summary Discharge Summary _ DATE OF ADMISSION: 10/23/2019 DATE OF DISCHARGE: 10/27/2019 DISCHARGED BY: Dr. Mccartney REASON FOR ADMISSION: 88 years old female with past medical history of diabetes mellitus, hypertension , presented to emergency department complaining of generalized weakness. Patient apparently passed out earlier that day. Chest pain reported reported as left-sided , substernal. She also complained of shortness of breath from the morning. Patient denied headache or any focal weakness. No known fever or chills. Patient complained of decreased oral intake. She denied any abdominal pain, nausea, vomiting . She denied any hematemesis ,melena, hematochezia. Upon evaluation she was afebrile . She required supplemental oxygen. Laboratory work-up revealed leukocytosis WBC 16.3 ,hemoglobin 5.3, hematocrit 17.8, MCV 107. Platelet count 183. Stable electrolytes. BUN 89, creatinine 2.3 Lactic acid 5.9 . AST 19, ALT 22. Troponin 0.027 , pro BNP 1200 . EKG revealed sinus rhythm , no acute ischemic changes Albumin 2.5 UA + bacteria, no pyuria Chest x-ray revealed no acute cardiopulmonary pathology. CT of the head revealed no acute intracranial abnormality. Right basal ganglia small old lacunar infarct noted. CT scan of the chest, abdomen, pelvis revealed lung base unremarkable. No mass , no consolidation. No acute traumatic injury. Areas of possible small bowel wall thickening or non-distention could be incidental or could represent infectious or inflammatory enteritis. Cholelithiasis without findings to suggest acute cholecystitis. Colonic diverticulosis without acute diverticulitis Right renal atrophy. Moderate coronary artery calcification. In emergency department patient typed and crossed , received Protonix, 1 L of fluid , empiric antibiotic and admitted for further management. Patient was also swabbed for COVID 19. CONSULTANTS: trust and estates attorney Dr. Saenz GI specialist Dr. Mccartney glaze maker Dr. Melchor [facility] COURSE: Patient admitted to telemetry floor and kept in isolation . Patient initially was on clear liquid diet. Patient started on Protonix IV every 12 hours. Patient undergone transfusion of 2 units of packed red blood cells. Anemia work-up was consistent with anemia of iron deficiency. Patient received 1 dose of IV Venofer and was sent home on oral iron pills and PPI / Protonix. Stool for occult blood was positive. CEA and CA 19-9 both s within normal limits. Patient subsequently undergone upper endoscopy and colonoscopy with biopsy. It revealed gastritis, four colonic polyps, internal hemorrhoids and diverticulosis without evidence of diverticulitis. Given the profound anemia and stool OB positive, GI recommended outpatient follow-up for capsule endoscopy. Antral biopsy revealed moderate chronic gastritis with focal reactive changes. No H. pylori. Biopsy of sigmoid colon polyp x2 revealed tubular adenoma , no high-grade dysplasia or malignancy. Biopsy of ascending colon polyps x2 revealed tubular adenoma, no high-grade dysplasia or malignancy. Supplemental oxygen provided and titrated to keep pulse oximetry above 92%. As hemoglobin and hematocrit improved, patient was able to be weaned from supplemental oxygen and pulse oximetry was stable on room air. Patient initially started on the IV fluids. Renal parameters and electrolytes were closely monitored , nephrotoxic's were avoided. Teletype Operator followed. Patient had probably acute renal failure on chronic kidney disease , given finding of right renal atrophy on imaging . RAISA inhibitor stopped. Creatinine trended down to normal. Patient initially started on empiric antibiotics/Zosyn. Leukocytosis resolved, likely was reactive antibiotics. SARS COV 2 by PCR was negative. Isolation discontinued. Blood cultures were negative. Urine culture was negative. Blood sugar was managed with Starlix and sliding scale of insulin. Hemoglobin A1c 7.8. Patient will require to improve glycemic control as outpatient. Serial troponin negative, EKG revealed no acute ischemic changes . Patient was ruled out for acute myocardial infarction. Per trust and estates attorney chest pain was most likely due to demand ischemia secondary to acute anemia. Echocardiogram demonstrated preserved ejection fraction of 65% with mild left ventricular hypertrophy. No evidence of wall motion abnormality. Dietary supplements implemented in plan of care as per advanced registered nurse recommendation. Patient was working with a physical therapist. Fall precaution maintained. Physical therapy recommended outpatient physical therapy to improve gait and mobility. Patient clinically stabilized and was ready for discharge home with home health services. Patient will need to follow-up with primary care provider for small bowel capsule endoscopy. Primary care provider was made aware. FINAL DIAGNOSES: Anemia of acute blood loss , requiring blood transfusion GI bleeding s/p EGD with biopsy and colon with biopsy Gastritis Diverticular disease without evidence of acute diverticulitis Chest pain with shortness of breath - due to demand ischemic secondary to severe anemia Syncope- likely due to severe anemia Leukocytosis- resolved Suspected COVID-19 ruled out Acute renal failure probably on chronic kidney disease Hypertension Diabetes mellitus with hyperglycemia History of CVA with small old lacunar infarct /per imaging Cholelithiasis without evidence of cholecystitis Protein calorie malnutrition DISCHARGE MEDICATIONS: See Medication Reconciliation list. DISCHARGE INSTRUCTIONS: Patient was discharged home with home health services. Follow up with primary care provider in one week. Patient will need small bowel capsule endoscopy to be arranged as outpatient. Beronica Newman NP Oct 29, 2019 16:35
--- NOTE | 2019-10-30 11:27 | CDS Physician Query ---
Clarification is required for compliance, coding accuracy, and to reflect severity of illness for this patient Dear Dr. Shaji Mccartney MD Date: 10/27/2019 Owner/Photographer/CDS Name: Matt Doan Clinical Documentation States: "88 years old female with past medical history of diabetes mellitus, hypertension, presented to emergency department complaining of generalized weakness. Patient apparently passed out earlier that day. " [ H&P Shaji Mccartney MD 10/24/2019] ASSESSMENT: Anemia of acute blood loss requiring blood transfusion, rule out GI bleeding, Chest pain with shortness of breath, possibly due to severe anemia Syncope , likely due to severe anemia, Leukocytosis, Suspected COVID-19, Acute renal failure probably on CKD , possible sepsis Clinical findings show: 10/22 10/23 10/24 (19:12) (05:10) (:) Creatinine level: 2.3 1.8 1.8 BUN: 89 85 51 GFR: 20.0 26.6 26.6 Medication: Sodium Chloride 1000@999mls/hr IV (10/22-10/23) Please Clarify the type of renal failure below: [] Acute Renal Failure w/ Tubular Necrosis [] Acute Renal Failure w/ Cortical Necrosis [] Acute Renal Failure w/ Medullary Necrosis [] Acute Renal Failure (unspecified) [] Other: Present on Admission: [] Yes [] No [] Clinically Undetermined Physician signature Date MTDD
--- NOTE | 2019-11-13 11:21 | CDS Physician Query ---
Clarification is required for compliance, coding accuracy, and to reflect severity of illness for this patient Dear Dr. Theodore Melchor MD Date: 11/12/2019 Clinical Documentation States: "88-year-old female is admitted with severe anemia as a result of acute blood loss through the GI tract.Chest pain, shortness of breath, syncope, all most likely secondary to severe anemia. Renal failure mainly appears to be prerenal as a result of GI bleed. May have underlying chronic kidney disease due to history of hypertension and diabetes mellitus. And also right side renal atrophy on imaging " [ Nephrology PN Theodore Melchor MDJun 2019 14:10] Clinical finding show: 10/22 (19:12) 10/23(05:10) 10/24(:30) Creatinine Level: 2.3 1.8 1.8 BUN: 89 85 51 GFR: 20 26.6 26.6 Medication: Sod.Chloride 1000@999mls/h IV (10/22-10/23) Please Clarify the type of renal failure below: [ ] Acute Renal Failure w/ Tubular Necrosis [ ] Acute Renal Failure w/ Cortical Necrosis [ ] Acute Renal Failure w/ Medullary Necrosis [ ] Acute Renal Failure (unspecified) [ ] Other: If Chronic, please specify the stage: [ ] CKD Stage 1 [ ] CKD Stage 2 [ ] CKD Stage 3 [ ] CKD Stage 4 [ ] CKD Stage 5 [ ] ESRD [ ] Not applicable Present on Admission: [] Yes [] No [] Clinically Undetermined Physician signature Date Please also document in your Progress Notes and/or Discharge Summary and indicate if the condition was present on admission. RACHELL
== END 2019-10-27 16:19 | disposition home health service (06) | DRG 811 ==
LOC: EDBD 18:33 → EMR 19:33 → 2E 20:25 → EDBEDREQ 20:47
PROC: 0DB78ZX Excision of Stomach, Pylorus, Via Natural or Artificial Opening Endoscopic, Diagnostic (ICD-10-PCS; principal; 2019-10-23)
PROC: 0DBL8ZZ Excision of Transverse Colon, Via Natural or Artificial Opening Endoscopic (ICD-10-PCS; principal; 2019-10-23)
PROC: 30233N1 Transfusion of Nonautologous Red Blood Cells into Peripheral Vein, Percutaneous Approach (ICD-10-PCS; principal; 2019-10-23)
PROC: 0DBN8ZZ Excision of Sigmoid Colon, Via Natural or Artificial Opening Endoscopic (ICD-10-PCS; principal; 2019-10-23)
PROC: 0DBK8ZZ Excision of Ascending Colon, Via Natural or Artificial Opening Endoscopic (ICD-10-PCS; principal; 2019-10-23)
DX: D62 Acute posthemorrhagic anemia (principal); K29.71 Gastritis, unspecified, with bleeding; N17.9 Acute kidney failure, unspecified; I12.0 Hypertensive chronic kidney disease with stage 5 chronic kidney disease or end stage renal disease; E46 Unspecified protein-calorie malnutrition; I24.8 Other forms of acute ischemic heart disease; Z20.828 Contact with and (suspected) exposure to other viral communicable diseases; E11.65 Type 2 diabetes mellitus with hyperglycemia; E11.22 Type 2 diabetes mellitus with diabetic chronic kidney disease; R07.9 Chest pain, unspecified; Z86.73 Personal history of transient ischemic attack (TIA), and cerebral infarction without residual deficits; K80.20 Calculus of gallbladder without cholecystitis without obstruction; K57.90 Diverticulosis of intestine, part unspecified, without perforation or abscess without bleeding; Z79.82 Long term (current) use of aspirin; E78.5 Hyperlipidemia, unspecified; K21.9 Gastro-esophageal reflux disease without esophagitis; M81.0 Age-related osteoporosis without current pathological fracture; K29.70 Gastritis, unspecified, without bleeding; K64.8 Other hemorrhoids; K63.5 Polyp of colon; N26.1 Atrophy of kidney (terminal)
CPT/HCPCS: 36415; 70450; 71045; 71250; 74176; 80048; 80053; 80061; 81003; 82270; 82378; 82550; 82607; 82728; 82746; 82962; 83036; 83540; 83550; 83605; 83735; 83880; 84100; 84300; 84443; 84484; 84550; 85007; 85025; 85379; 85610; 85730; 86850; 86900; 86901; 86920; 87040; 87086; 93005; 93306; 94003; 94150; 96361; 96365; 96375; 97802; 99291; J1815; J7030